=== PATIENT | female | born 1935 | race Caucasian/White ===

== ENCOUNTER → 2016-05-11 | Outpatient (CLI) | payer OTHER ==
[~2016-05-11] MED LIST: AMLO5CAP40; CYCL-181; LEVO150T68; PRED10PA7; PREMARIN; [UNRECOGNIZED DRUG - CODE]; [UNRECOGNIZED DRUG - CODE]
[2016-05-11 12:33] LABS: Basophils # (auto) 0 uL; Basophils % (auto) 0.5 % (0.0-2.0); Eosinophils # (auto) 0.3 uL; Eosinophils % (auto) 3.2 % (0.0-7.0); Hematocrit 46.6 % (36.0-46.0); Hemoglobin 14.9 g/dL (12.2-16.2); Lymphocytes # (auto) 2.8 uL; Lymphocytes % (auto) 34.3 % (10.0-50.0); Mean Corpuscular Hemoglobin 28.5 pg (28.0-32.0); Mean Corpuscular Hgb Conc. 31.9 g/dL (32.0-36.0); Mean Corpuscular Volume 89.3 fL (80.0-100.0); Mean Platelet Volume 8.9 fL (7.4-10.4); Monocytes # (auto) 0.4 uL; Monocytes % (auto) 5.1 % (0.0-12.0); Neutrophils # (auto) 4.7 uL; Neutrophils % (auto) 56.9 % (37.0-80.0); Platelet Count (auto) 316 10^3/uL (140-450); Red Cell Distribution Width 13.5 % (11.6-16.0); White Blood Cell 8.3 10^3/uL (4.4-10.8)
[2016-05-11 12:57] LABS: Albumin 3.6 g/dL (3.4-5.0); BUN/Creatinine Ratio 20.3; Bilirubin, Total 0.3 mg/dL (0.2-1.0); Potassium 4.4 mmol/L (3.5-5.1); Total Protein 7.3 g/dL (6.4-8.2)
[2016-05-11 13:09] LABS: Urine Bilirubin Negative (Negative); Urine Blood Negative /uL (Negative); Urine Color Yellow (Yellow); Urine Glucose Normal (Normal); Urine Ketone Negative (Negative); Urine Nitrite Negative (Negative); Urine Urobilinogen Normal (Negative)
== END | disposition home or self-care (01) ==
LOC: LAB 11:42
PROVIDERS: ATTEND Internal Medicine
DX: Z00.00 Encounter for general adult medical examination without abnormal findings (principal); I10 Essential (primary) hypertension; E55.9 Vitamin D deficiency, unspecified
CPT/HCPCS: 36415; 80053; 80061; 81003; 82306; 82550; 83036; 84443; 85025

== ENCOUNTER → 2016-08-18 | Outpatient (CLI) | payer OTHER | END | disposition home or self-care (01) | LOC: XY 10:09 | PROVIDERS: ATTEND Internal Medicine | DX: I73.9 Peripheral vascular disease, unspecified (principal) | CPT/HCPCS: 93926 ==

== ENCOUNTER 2017-01-02 09:50 | Emergency (ER) | payer OTHER ==
[~2017-01-02] VITALS: Ht 162.6 cm; Wt 81.6 kg
[2017-01-02 10:42] LABS: Urine Bilirubin Negative (Negative); Urine Blood Negative /uL (Negative); Urine Color Yellow (Yellow); Urine Glucose Normal (Normal); Urine Ketone Negative (Negative); Urine Mucus FEW (None Seen); Urine Nitrite Negative (Negative); Urine RBC 4 /hpf (0 - 4); Urine Squamous Epithelial Cell MOD /hpf (<5); Urine Urobilinogen Normal (Negative)
[2017-01-02 12:35] VITALS: BP 145/82
== END 2017-01-02 12:34 | disposition home or self-care (01) ==
LOC: ER 09:50
DX: N39.0 Urinary tract infection, site not specified (principal); I10 Essential (primary) hypertension; Z79.82 Long term (current) use of aspirin; Z90.49 Acquired absence of other specified parts of digestive tract; Z98.84 Bariatric surgery status
CPT/HCPCS: 74176; 81001; 93005

== ENCOUNTER → 2017-03-17 | Outpatient (CLI) | payer OTHER ==
[2017-03-17 11:53] LABS: Basophils # (auto) 0 uL; Basophils % (auto) 0.7 % (0.0-2.0); Eosinophils # (auto) 0.2 uL; Eosinophils % (auto) 2.9 % (0.0-7.0); Hematocrit 43.6 % (36.0-46.0); Hemoglobin 14.7 g/dL (12.2-16.2); Lymphocytes % (auto) 40.8 % (10.0-50.0); Mean Corpuscular Hemoglobin 30.6 pg (28.0-32.0); Mean Corpuscular Hgb Conc. 33.7 g/dL (32.0-36.0); Mean Corpuscular Volume 90.9 fL (80.0-100.0); Mean Platelet Volume 7.9 fL (6.9-10.8); Monocytes % (auto) 13.9 % (0.0-12.0); Neutrophils % (auto) 41.7 % (37.0-80.0); Nucleated Red Blood Cells % 0.1 %; Platelet Count (auto) 284 10^3/uL (140-450); Red Cell Distribution Width 14.2 % (11.8-14.3); White Blood Cell 7.3 10^3/uL (4.4-10.8)
[2017-03-17 12:24] LABS: Albumin 3.5 g/dL (3.4-5.0); BUN/Creatinine Ratio 20.7; Bilirubin, Total 0.4 mg/dL (0.2-1.0); Calcium 9.2 mg/dL (8.5-10.1); Potassium 4.2 mmol/L (3.5-5.1); Total Protein 7.5 g/dL (6.4-8.2); Uric Acid 6.2 mg/dL (2.6-6.0)
== END | disposition home or self-care (01) ==
LOC: LAB 11:27
PROVIDERS: ATTEND Physician Assistant
DX: I10 Essential (primary) hypertension (principal); E03.9 Hypothyroidism, unspecified; M10.9 Gout, unspecified
CPT/HCPCS: 36415; 80053; 80061; 84443; 84550; 85025

== ENCOUNTER 2017-08-30 20:45 | Emergency (ER) | payer OTHER ==
[~2017-08-30] VITALS: Ht 162.6 cm; Wt 81.6 kg
[2017-08-30 21:01] VITALS: BP 162/76
[2017-08-30 22:01] LABS: Albumin 3.6 g/dL (3.4-5.0); BUN/Creatinine Ratio 18.9; Bilirubin, Total 0.3 mg/dL (0.2-1.0); Calcium 9.4 mg/dL (8.5-10.1); Total Protein 7.7 g/dL (6.4-8.2)
[2017-08-30 22:04] LABS: INR 0.99 (0.9-1.15); Partial Thromboplastin Time 29.4 sec (23.78-33.04); Prothrombin Time 10.6 sec (9.27-12.13)
[2017-08-30 22:20] LABS: Basophils # (auto) 0.1 uL; Basophils % (auto) 0.6 % (0.0-2.0); Eosinophils # (auto) 0.3 uL; Eosinophils % (auto) 3.5 % (0.0-7.0); Hematocrit 41.9 % (36.0-46.0); Lymphocytes # (auto) 2.3 uL; Lymphocytes % (auto) 24.7 % (10.0-50.0); Mean Corpuscular Hemoglobin 30.3 pg (28.0-32.0); Mean Corpuscular Hgb Conc. 33.5 g/dL (32.0-36.0); Mean Corpuscular Volume 90.5 fL (80.0-100.0); Monocytes # (auto) 0.6 uL; Monocytes % (auto) 6.9 % (0.0-12.0); Neutrophils % (auto) 64.3 % (37.0-80.0); Nucleated Red Blood Cells % 0.1 %; Platelet Count (auto) 274 10^3/uL (140-450); Red Blood Cells 4.63 10^6/uL (4.0-5.20); Red Cell Distribution Width 13.9 % (11.8-14.3); White Blood Cell 9.4 10^3/uL (4.4-10.8)
== END 2017-08-30 22:49 | disposition left against medical advice (07) ==
LOC: ER 20:45
DX: T50.991A Poisoning by other drugs, medicaments and biological substances, accidental (unintentional), initial encounter (principal); Z53.21 Procedure and treatment not carried out due to patient leaving prior to being seen by health care provider; Y92.89 Other specified places as the place of occurrence of the external cause
CPT/HCPCS: 36415; 80053; 85025; 85610; 85730; 93005

== ENCOUNTER → 2017-08-30 | Outpatient (CLI) | payer OTHER ==
[2017-08-30 16:11] LABS: Basophils # (auto) 0.1 uL; Basophils % (auto) 1.2 % (0.0-2.0); Eosinophils # (auto) 0.3 uL; Hematocrit 43.1 % (36.0-46.0); Hemoglobin 14.4 g/dL (12.2-16.2); Lymphocytes # (auto) 2.5 uL; Lymphocytes % (auto) 28.3 % (10.0-50.0); Mean Corpuscular Hemoglobin 30.2 pg (28.0-32.0); Mean Corpuscular Hgb Conc. 33.4 g/dL (32.0-36.0); Mean Corpuscular Volume 90.4 fL (80.0-100.0); Monocytes # (auto) 0.6 uL; Monocytes % (auto) 7.2 % (0.0-12.0); Neutrophils # (auto) 5.1 uL; Neutrophils % (auto) 59.3 % (37.0-80.0); Platelet Count (auto) 272 10^3/uL (140-450); Red Blood Cells 4.77 10^6/uL (4.0-5.20); White Blood Cell 8.7 10^3/uL (4.4-10.8)
[2017-08-30 16:17] LABS: Urine Bacteria FEW /hpf (None Seen); Urine Blood Negative /uL (Negative); Urine Specific Gravity 1.016 (1.001-1.035); Urine WBC 3 /hpf (0 - 5)
[2017-08-30 17:16] LABS: BUN/Creatinine Ratio 21.4; Calcium 9.4 mg/dL (8.5-10.1); Phosphorus 3.2 mg/dL (2.5-4.90); Potassium 4.3 mmol/L (3.5-5.1)
[2017-08-30 17:18] LABS: Protein, Urine 10.7 mg/dL (0.0-11.9)
== END | disposition home or self-care (01) ==
LOC: LAB 15:31
PROVIDERS: ATTEND Student in an Organized Health Care Education/Training Program
DX: R80.9 Proteinuria, unspecified (principal); D84.1 Defects in the complement system; R76.8 Other specified abnormal immunological findings in serum; E03.9 Hypothyroidism, unspecified; I10 Essential (primary) hypertension
CPT/HCPCS: 36415; 80048; 81001; 82306; 82570; 83970; 84100; 84156; 85025; 86038; 86160; 86256

== ENCOUNTER → 2018-01-16 | Outpatient (CLI) | payer OTHER ==
[2018-01-16 10:55] LABS: Basophils # (auto) 0 uL; Basophils % (auto) 0.5 % (0.0-2.0); Eosinophils # (auto) 0.3 uL; Eosinophils % (auto) 3.5 % (0.0-7.0); Hematocrit 45.6 % (36.0-46.0); Hemoglobin 15.1 g/dL (12.2-16.2); Lymphocytes % (auto) 33.3 % (10.0-50.0); Mean Corpuscular Hemoglobin 30.4 pg (28.0-32.0); Mean Corpuscular Hgb Conc. 33.2 g/dL (32.0-36.0); Mean Corpuscular Volume 91.5 fL (80.0-100.0); Monocytes # (auto) 0.7 uL; Monocytes % (auto) 7.9 % (0.0-12.0); Neutrophils % (auto) 54.8 % (37.0-80.0); Platelet Count (auto) 304 10^3/uL (140-450); Red Blood Cells 4.98 10^6/uL (4.0-5.20); Red Cell Distribution Width 13.7 % (11.8-14.3); White Blood Cell 9.1 10^3/uL (4.4-10.8)
[2018-01-16 11:06] LABS: Urine Bacteria FEW /hpf (None Seen); Urine Blood Negative /uL (Negative); Urine Mucus FEW (None Seen); Urine Specific Gravity 1.017 (1.001-1.035); Urine WBC 9 /hpf (0 - 5)
[2018-01-16 11:12] LABS: Calcium 9.4 mg/dL (8.5-10.1); Potassium 4.2 mmol/L (3.5-5.1)
[2018-01-16 11:14] LABS: BUN/Creatinine Ratio 18.6
== END | disposition home or self-care (01) ==
LOC: LAB 10:02
PROVIDERS: ATTEND Student in an Organized Health Care Education/Training Program
DX: N18.3 Chronic kidney disease, stage 3 (moderate) (principal); D63.1 Anemia in chronic kidney disease; N39.0 Urinary tract infection, site not specified
CPT/HCPCS: 36415; 80048; 81001; 85025

== ENCOUNTER → 2018-02-05 | Outpatient (CLI) | payer OTHER ==
[2018-02-05 12:45] LABS: Basophils # (auto) 0.1 uL; Basophils % (auto) 0.9 % (0.0-2.0); Eosinophils # (auto) 0.3 uL; Eosinophils % (auto) 4.5 % (0.0-7.0); Hematocrit 44.3 % (36.0-46.0); Hemoglobin 14.9 g/dL (12.2-16.2); Lymphocytes # (auto) 2.3 uL; Lymphocytes % (auto) 31.2 % (10.0-50.0); Mean Corpuscular Hemoglobin 30.9 pg (28.0-32.0); Mean Corpuscular Hgb Conc. 33.5 g/dL (32.0-36.0); Mean Corpuscular Volume 92.2 fL (80.0-100.0); Monocytes # (auto) 0.5 uL; Neutrophils # (auto) 4.2 uL; Neutrophils % (auto) 56.4 % (37.0-80.0); Nucleated Red Blood Cells % 0.1 %; Platelet Count (auto) 244 10^3/uL (140-450); Red Cell Distribution Width 13.6 % (11.8-14.3); White Blood Cell 7.4 10^3/uL (4.4-10.8)
[2018-02-05 13:51] LABS: Albumin 3.4 g/dL (3.4-5.0); Potassium 4.4 mmol/L (3.5-5.1)
[2018-02-05 13:57] LABS: BUN/Creatinine Ratio 19.9; Bilirubin, Total 0.4 mg/dL (0.2-1.0); Total Protein 7.8 g/dL (6.4-8.2)
== END | disposition home or self-care (01) ==
LOC: LAB 10:16
PROVIDERS: ATTEND Physician Assistant
DX: Z00.01 Encounter for general adult medical examination with abnormal findings (principal); I12.9 Hypertensive chronic kidney disease with stage 1 through stage 4 chronic kidney disease, or unspecified chronic kidney disease; N18.3 Chronic kidney disease, stage 3 (moderate); E03.9 Hypothyroidism, unspecified
CPT/HCPCS: 36415; 80053; 80061; 84443; 85025

== ENCOUNTER 2018-03-15 11:20 | Emergency (ER) | payer OTHER ==
[~2018-03-15] VITALS: Ht 162.6 cm; Wt 79.4 kg
[2018-03-15 11:48] VITALS: BP 151/79
[2018-03-15] MEDS ORDERED: HYDROcodone-ACET 10/325MG TAB PO ONE (12:00)
== END 2018-03-15 15:32 | disposition home or self-care (01) ==
LOC: ER 11:20
DX: S20.211A Contusion of right front wall of thorax, initial encounter (principal); S90.31XA Contusion of right foot, initial encounter; S80.01XA Contusion of right knee, initial encounter; S50.01XA Contusion of right elbow, initial encounter; I12.9 Hypertensive chronic kidney disease with stage 1 through stage 4 chronic kidney disease, or unspecified chronic kidney disease; N18.9 Chronic kidney disease, unspecified; E07.89 Other specified disorders of thyroid; Z90.49 Acquired absence of other specified parts of digestive tract; Z90.710 Acquired absence of both cervix and uterus; Z88.2 Allergy status to sulfonamides; W19.XXXA Unspecified fall, initial encounter; Y93.89 Activity, other specified; Y99.8 Other external cause status; Y92.89 Other specified places as the place of occurrence of the external cause
CPT/HCPCS: 71101; 73070; 73560; 73620

== ENCOUNTER → 2018-04-16 | Outpatient (CLI) | payer OTHER ==
[2018-04-16 13:25] LABS: Basophils # (auto) 0 uL; Basophils % (auto) 0.5 % (0.0-2.0); Eosinophils # (auto) 0.3 uL; Eosinophils % (auto) 3.8 % (0.0-7.0); Hematocrit 45.7 % (36.0-46.0); Hemoglobin 15.3 g/dL (12.2-16.2); Lymphocytes % (auto) 35.3 % (10.0-50.0); Mean Corpuscular Hemoglobin 30.7 pg (28.0-32.0); Mean Corpuscular Hgb Conc. 33.5 g/dL (32.0-36.0); Mean Corpuscular Volume 91.5 fL (80.0-100.0); Monocytes # (auto) 0.6 uL; Monocytes % (auto) 6.9 % (0.0-12.0); Neutrophils # (auto) 4.5 uL; Neutrophils % (auto) 53.5 % (37.0-80.0); Nucleated Red Blood Cells % 0.1 %; Platelet Count (auto) 284 10^3/uL (140-450); Red Blood Cells 4.99 10^6/uL (4.0-5.20); Red Cell Distribution Width 13.3 % (11.8-14.3); White Blood Cell 8.4 10^3/uL (4.4-10.8)
[2018-04-16 13:27] LABS: Urine Blood Negative /uL (Negative); Urine Specific Gravity 1.018 (1.001-1.035)
[2018-04-16 13:46] LABS: BUN/Creatinine Ratio 14.7; Calcium 9.1 mg/dL (8.5-10.1); Potassium 4.5 mmol/L (3.5-5.1)
== END | disposition home or self-care (01) ==
LOC: LAB 12:00
PROVIDERS: ATTEND Student in an Organized Health Care Education/Training Program
DX: N18.3 Chronic kidney disease, stage 3 (moderate) (principal); D63.1 Anemia in chronic kidney disease; E55.9 Vitamin D deficiency, unspecified; R80.9 Proteinuria, unspecified
CPT/HCPCS: 36415; 80048; 81003; 82306; 85025

== ENCOUNTER 2018-06-20 19:27 | Emergency (ER) | payer OTHER ==
[~2018-06-20] VITALS: Ht 162.6 cm; Wt 77.1 kg
[2018-06-20 19:52] VITALS: BP 194/85
[2018-06-20 20:12] LABS: Basophils # (auto) 0.1 uL; Basophils % (auto) 0.8 % (0.0-2.0); Eosinophils # (auto) 0.2 uL; Eosinophils % (auto) 2.5 % (0.0-7.0); Hematocrit 43.6 % (36.0-46.0); Hemoglobin 14.7 g/dL (12.2-16.2); Lymphocytes # (auto) 2.4 uL; Lymphocytes % (auto) 25.4 % (10.0-50.0); Mean Corpuscular Hgb Conc. 33.8 g/dL (32.0-36.0); Mean Corpuscular Volume 91.6 fL (80.0-100.0); Monocytes # (auto) 0.6 uL; Monocytes % (auto) 6.4 % (0.0-12.0); Neutrophils # (auto) 6.1 uL; Neutrophils % (auto) 64.9 % (37.0-80.0); Platelet Count (auto) 293 10^3/uL (140-450); Red Blood Cells 4.76 10^6/uL (4.0-5.20); Red Cell Distribution Width 14.1 % (11.8-14.3); White Blood Cell 9.3 10^3/uL (4.4-10.8)
[2018-06-20 20:26] LABS: Partial Thromboplastin Time 29.9 sec (23.78-33.04); Prothrombin Time 10.7 sec (9.27-12.13)
[2018-06-20 20:30] LABS: Chloride 112 mmol/L (98-107); Potassium 3.8 mmol/L (3.5-5.1); Sodium 141 mmol/L (136-145)
[2018-06-20 20:32] LABS: Alanine Aminotransferase 24 U/L (13-56); Albumin 3.7 g/dL (3.4-5.0); Anion Gap 8 (5-15); Aspartate Aminotransferase 18 U/L (15-37); BUN/Creatinine Ratio 15.7; Blood Urea Nitrogen 19 mg/dL (7-18); Calcium 8.9 mg/dL (8.5-10.1); Carbon Dioxide 21 mmol/L (21-32); GFR African American 55 mL/min; GFR Non-African American 46 mL/min; Glucose 117 mg/dL (74-106); Magnesium 2.1 mg/dL (1.6-2.6)
[2018-06-20 20:36] LABS: Alkaline Phosphatase 108 U/L (45-117); Bilirubin, Total 0.4 mg/dL (0.2-1.0); Total Protein 7.7 g/dL (6.4-8.2)
== END 2018-06-20 23:58 | disposition left against medical advice (07) ==
LOC: ER 19:31
DX: R42 Dizziness and giddiness (principal); H92.01 Otalgia, right ear; Z53.21 Procedure and treatment not carried out due to patient leaving prior to being seen by health care provider
CPT/HCPCS: 36415; 70450; 80053; 83735; 83880; 84484; 85025; 85610; 85730

== ENCOUNTER → 2018-09-10 | Outpatient (CLI) | payer OTHER ==
[~2018-09-10] MED LIST changes: -AMLO5CAP40; +AMLO5TAB13 PO; +ASPI81TA27 PO; +ATEN50TA PO; -CYCL-181; +CYCL7.5T15 PO; +LEVO112T4 PO; -LEVO150T68; +LOSA-49 PO; -PRED10PA7; -PREMARIN; -[UNRECOGNIZED DRUG - CODE]; -[UNRECOGNIZED DRUG - CODE]
[2018-09-10 13:04] LABS: Basophils # (auto) 0.1 uL; Basophils % (auto) 0.9 % (0.0-2.0); Eosinophils # (auto) 0.3 uL; Eosinophils % (auto) 3.3 % (0.0-7.0); Hematocrit 44.5 % (36.0-46.0); Hemoglobin 14.8 g/dL (12.2-16.2); Lymphocytes # (auto) 2.7 uL; Lymphocytes % (auto) 32.1 % (10.0-50.0); Mean Corpuscular Hgb Conc. 33.2 g/dL (32.0-36.0); Mean Corpuscular Volume 90.4 fL (80.0-100.0); Monocytes # (auto) 0.5 uL; Monocytes % (auto) 6.5 % (0.0-12.0); Neutrophils # (auto) 4.8 uL; Neutrophils % (auto) 57.2 % (37.0-80.0); Nucleated Red Blood Cells % 0.1 %; Platelet Count (auto) 275 10^3/uL (140-450); Red Blood Cells 4.93 10^6/uL (4.0-5.20); Red Cell Distribution Width 13.3 % (11.8-14.3); White Blood Cell 8.4 10^3/uL (4.4-10.8)
[2018-09-10 13:21] LABS: Urine Blood Negative /uL (Negative); Urine Specific Gravity 1.015 (1.001-1.035)
[2018-09-10 13:42] LABS: BUN/Creatinine Ratio 16.5; Calcium 9.2 mg/dL (8.5-10.1); Creatinine, Urine 87 mg/dL (30.0-125.0); Potassium 4.2 mmol/L (3.5-5.1); Protein, Urine 13.7 mg/dL (0.0-11.9)
== END | disposition home or self-care (01) ==
LOC: LAB 12:39
PROVIDERS: ATTEND Student in an Organized Health Care Education/Training Program
DX: I12.9 Hypertensive chronic kidney disease with stage 1 through stage 4 chronic kidney disease, or unspecified chronic kidney disease (principal); N18.3 Chronic kidney disease, stage 3 (moderate); D63.1 Anemia in chronic kidney disease; R80.9 Proteinuria, unspecified; E78.5 Hyperlipidemia, unspecified
CPT/HCPCS: 36415; 80048; 80061; 81003; 82570; 84156; 85025

== ENCOUNTER → 2019-03-04 | Outpatient (CLI) | payer OTHER ==
[~2019-03-04] MED LIST changes: -AMLO5TAB13 PO; +AMLO5TAB15 PO; +ASPI-404 PO; -ASPI81TA27 PO; +LOSA-39 PO; -LOSA-49 PO
[2019-03-04 11:11] LABS: Basophils # (auto) 0.1 uL; Basophils % (auto) 0.8 % (0.0-2.0); Eosinophils # (auto) 0.3 uL; Eosinophils % (auto) 4.1 % (0.0-7.0); Hematocrit 45.7 % (36.0-46.0); Hemoglobin 15.3 g/dL (12.2-16.2); Lymphocytes # (auto) 2.5 uL; Lymphocytes % (auto) 30.3 % (10.0-50.0); Mean Corpuscular Hemoglobin 30.4 pg (28.0-32.0); Mean Corpuscular Hgb Conc. 33.4 g/dL (32.0-36.0); Mean Corpuscular Volume 90.9 fL (80.0-100.0); Monocytes # (auto) 0.5 uL; Monocytes % (auto) 6.7 % (0.0-12.0); Neutrophils # (auto) 4.8 uL; Neutrophils % (auto) 58.1 % (37.0-80.0); Nucleated Red Blood Cells % 0.1 %; Platelet Count (auto) 278 10^3/uL (140-450); Red Blood Cells 5.02 10^6/uL (4.0-5.20); Red Cell Distribution Width 13.6 % (11.8-14.3); White Blood Cell 8.2 10^3/uL (4.4-10.8)
[2019-03-04 11:37] LABS: Urine Blood Negative /uL (Negative); Urine Specific Gravity 1.011 (1.001-1.035)
[2019-03-04 12:28] LABS: Calcium 9.3 mg/dL (8.5-10.1); Potassium 4.5 mmol/L (3.5-5.1)
[2019-03-04 12:32] LABS: BUN/Creatinine Ratio 16.1
== END | disposition home or self-care (01) ==
LOC: LAB 10:50
PROVIDERS: ATTEND Student in an Organized Health Care Education/Training Program
DX: E55.9 Vitamin D deficiency, unspecified (principal); E03.9 Hypothyroidism, unspecified
CPT/HCPCS: 36415; 80048; 80061; 81003; 82306; 85025

== ENCOUNTER → 2019-05-14 | Outpatient (CLI) | payer OTHER | END | disposition home or self-care (01) | LOC: LAB 09:29 | PROVIDERS: ATTEND Physician Assistant | DX: R30.0 Dysuria (principal) | CPT/HCPCS: 87086; 87088; 87186 ==

== ENCOUNTER → 2019-09-02 | Outpatient (CLI) | payer OTHER ==
[2019-09-02 08:56] LABS: Basophils # (auto) 0.1 10 ^3/uL (0-0.2); Basophils % (auto) 1.2 % (0.0-2.0); Eosinophils # (auto) 0.5 10 ^3/uL (0-0.8); Eosinophils % (auto) 6.8 % (0.0-7.0); Hematocrit 48.7 % (36.0-46.0); Hemoglobin 15.9 g/dL (12.2-16.2); Lymphocytes # (auto) 2.2 10 ^3/uL (0.4-5.4); Lymphocytes % (auto) 31.8 % (10.0-50.0); Mean Corpuscular Hemoglobin 29.7 pg (28.0-32.0); Mean Corpuscular Hgb Conc. 32.6 g/dL (32.0-36.0); Mean Corpuscular Volume 91.1 fL (80.0-100.0); Monocytes # (auto) 0.5 10 ^3/uL (0-1.3); Monocytes % (auto) 6.8 % (0.0-12.0); Neutrophils # (auto) 3.7 10 ^3/uL (1.6-8.6); Neutrophils % (auto) 53.4 % (37.0-80.0); Nucleated Red Blood Cells % 0.1 %; Platelet Count (auto) 272 10^3/uL (140-450); Red Blood Cells 5.35 10^6/uL (4.0-5.20); Red Cell Distribution Width 13.2 % (11.8-14.3); White Blood Cell 6.9 10^3/uL (4.4-10.8)
[2019-09-02 09:27] LABS: BUN/Creatinine Ratio 13.6; Calcium 9.6 mg/dL (8.5-10.1)
[2019-09-02 09:49] LABS: Urine Bacteria MANY /hpf (None Seen); Urine Blood Negative /uL (Negative); Urine Specific Gravity 1.016 (1.001-1.035); Urine WBC 39 /hpf (0 - 5)
== END | disposition home or self-care (01) ==
LOC: LAB 08:36
PROVIDERS: ATTEND Student in an Organized Health Care Education/Training Program
DX: E56.9 Vitamin deficiency, unspecified (principal); N18.3 Chronic kidney disease, stage 3 (moderate); N39.0 Urinary tract infection, site not specified; E21.3 Hyperparathyroidism, unspecified; E55.9 Vitamin D deficiency, unspecified
CPT/HCPCS: 36415; 80048; 81001; 82306; 83970; 85025

== ENCOUNTER → 2019-12-03 | Outpatient (CLI) | payer OTHER ==
[~2019-12-03] MED LIST changes: -ASPI-404 PO; +ASPI-543 PO; -CYCL7.5T15 PO; +CYCL7.5T45 PO
[2019-12-03 14:49] LABS: Basophils # (auto) 0.1 10 ^3/uL (0-0.2); Basophils % (auto) 0.8 % (0.0-2.0); Eosinophils # (auto) 0.3 10 ^3/uL (0-0.8); Eosinophils % (auto) 3.9 % (0.0-7.0); Hemoglobin 14.2 g/dL (12.2-16.2); Lymphocytes # (auto) 3.4 10 ^3/uL (0.4-5.4); Lymphocytes % (auto) 40.3 % (10.0-50.0); Mean Corpuscular Hemoglobin 30.2 pg (28.0-32.0); Mean Corpuscular Hgb Conc. 33.1 g/dL (32.0-36.0); Mean Corpuscular Volume 91.3 fL (80.0-100.0); Monocytes # (auto) 0.6 10 ^3/uL (0-1.3); Neutrophils # (auto) 4.1 10 ^3/uL (1.6-8.6); Platelet Count (auto) 252 10^3/uL (140-450); Red Cell Distribution Width 13.7 % (11.8-14.3); White Blood Cell 8.5 10^3/uL (4.4-10.8)
[2019-12-03 15:06] LABS: Calcium 9.1 mg/dL (8.5-10.1)
[2019-12-03 15:08] LABS: BUN/Creatinine Ratio 15.6; Phosphorus 3.8 mg/dL (2.5-4.90)
[2019-12-03 15:16] LABS: Protein, Urine 19.5 mg/dL (0.0-11.9)
[2019-12-03 15:32] LABS: Urine Bacteria NONE SEEN /hpf (None Seen); Urine Blood Negative /uL (Negative); Urine Mucus FEW (None Seen); Urine Specific Gravity 1.022 (1.001-1.035); Urine WBC 3 /hpf (0 - 5)
== END | disposition home or self-care (01) ==
LOC: LAB 14:36
PROVIDERS: ATTEND Student in an Organized Health Care Education/Training Program
DX: N18.3 Chronic kidney disease, stage 3 (moderate) (principal); E21.3 Hyperparathyroidism, unspecified; D63.1 Anemia in chronic kidney disease; R80.9 Proteinuria, unspecified; R82.90 Unspecified abnormal findings in urine
CPT/HCPCS: 36415; 80048; 81001; 82570; 83970; 84100; 84156; 85025

== ENCOUNTER → 2020-03-03 | Outpatient (CLI) | payer OTHER ==
[2020-03-03 11:14] LABS: Basophils # (auto) 0.1 10 ^3/uL (0-0.2); Basophils % (auto) 0.7 % (0.0-2.0); Eosinophils # (auto) 0.3 10 ^3/uL (0-0.8); Eosinophils % (auto) 3.4 % (0.0-7.0); Hematocrit 42.9 % (36.0-46.0); Hemoglobin 14.4 g/dL (12.2-16.2); Lymphocytes # (auto) 2.9 10 ^3/uL (0.4-5.4); Lymphocytes % (auto) 35.5 % (10.0-50.0); Mean Corpuscular Hemoglobin 30.1 pg (28.0-32.0); Mean Corpuscular Hgb Conc. 33.6 g/dL (32.0-36.0); Mean Corpuscular Volume 89.7 fL (80.0-100.0); Monocytes # (auto) 0.7 10 ^3/uL (0-1.3); Monocytes % (auto) 8.1 % (0.0-12.0); Neutrophils # (auto) 4.3 10 ^3/uL (1.6-8.6); Neutrophils % (auto) 52.3 % (37.0-80.0); Platelet Count (auto) 312 10^3/uL (140-450); Red Blood Cells 4.78 10^6/uL (4.0-5.20); Red Cell Distribution Width 13.7 % (11.8-14.3); White Blood Cell 8.3 10^3/uL (4.4-10.8)
[2020-03-03 11:18] LABS: Urine Bacteria MANY /hpf (None Seen); Urine Blood Negative /uL (Negative); Urine Specific Gravity 1.014 (1.001-1.035); Urine WBC 18 /hpf (0 - 5)
[2020-03-03 11:32] LABS: Albumin 3.6 g/dL (3.4-5.0); Calcium 9.5 mg/dL (8.5-10.1); Potassium 4.1 mmol/L (3.5-5.1); Uric Acid 5.4 mg/dL (2.6-6.0)
[2020-03-03 11:35] LABS: BUN/Creatinine Ratio 16.4; Bilirubin, Total 0.4 mg/dL (0.2-1.0); Phosphorus 2.8 mg/dL (2.5-4.90); Total Protein 7.7 g/dL (6.4-8.2)
[2020-03-03 11:37] LABS: Protein, Urine 12.1 mg/dL (0.0-11.9)
== END | disposition home or self-care (01) ==
LOC: LAB 10:54
PROVIDERS: ATTEND Student in an Organized Health Care Education/Training Program
DX: N18.30 Chronic kidney disease, stage 3 unspecified (principal); D63.1 Anemia in chronic kidney disease; N39.0 Urinary tract infection, site not specified; E21.3 Hyperparathyroidism, unspecified; R80.9 Proteinuria, unspecified; M10.9 Gout, unspecified
CPT/HCPCS: 36415; 80053; 80069; 81001; 82570; 83970; 84156; 84550; 85025

== ENCOUNTER → 2020-04-14 | Outpatient (CLI) | payer OTHER ==
[2020-04-14 11:07] LABS: Basophils # (auto) 0 10 ^3/uL (0-0.2); Basophils % (auto) 0.6 % (0.0-2.0); Eosinophils # (auto) 0.3 10 ^3/uL (0-0.8); Eosinophils % (auto) 3.9 % (0.0-7.0); Hematocrit 41.6 % (36.0-46.0); Hemoglobin 14.2 g/dL (12.2-16.2); Lymphocytes # (auto) 3.1 10 ^3/uL (0.4-5.4); Lymphocytes % (auto) 40.2 % (10.0-50.0); Mean Corpuscular Hemoglobin 30.8 pg (28.0-32.0); Mean Corpuscular Hgb Conc. 34.1 g/dL (32.0-36.0); Mean Corpuscular Volume 90.3 fL (80.0-100.0); Monocytes # (auto) 0.6 10 ^3/uL (0-1.3); Monocytes % (auto) 8.5 % (0.0-12.0); Neutrophils # (auto) 3.6 10 ^3/uL (1.6-8.6); Neutrophils % (auto) 46.8 % (37.0-80.0); Nucleated Red Blood Cells % 0.1 %; Platelet Count (auto) 289 10^3/uL (140-450); Red Cell Distribution Width 13.5 % (11.8-14.3); White Blood Cell 7.6 10^3/uL (4.4-10.8)
[2020-04-14 11:19] LABS: Urine Blood Negative /uL (Negative)
[2020-04-14 12:07] LABS: Potassium 4.1 mmol/L (3.5-5.1)
[2020-04-14 12:11] LABS: Creatinine, Urine 162 mg/dL (30.0-125.0); Protein, Urine 23.7 mg/dL (0.0-11.9)
[2020-04-14 12:28] LABS: Albumin 3.5 g/dL (3.4-5.0); Phosphorus 2.6 mg/dL (2.5-4.90); Uric Acid 5.3 mg/dL (2.6-6.0)
== END | disposition home or self-care (01) ==
LOC: LAB 10:44
PROVIDERS: ATTEND Student in an Organized Health Care Education/Training Program
DX: N18.30 Chronic kidney disease, stage 3 unspecified (principal); D63.1 Anemia in chronic kidney disease; E21.3 Hyperparathyroidism, unspecified; M10.9 Gout, unspecified; R80.9 Proteinuria, unspecified; N39.0 Urinary tract infection, site not specified; E56.9 Vitamin deficiency, unspecified
CPT/HCPCS: 36415; 80069; 81003; 82306; 82570; 83970; 84156; 84550; 85025

== ENCOUNTER → 2020-06-15 | Outpatient (CLI) | payer OTHER ==
[~2020-06-15] MED LIST changes: +AMLO-489 PO; -AMLO5TAB15 PO
[2020-06-15 13:16] LABS: Basophils # (auto) 0 10 ^3/uL (0-0.2); Basophils % (auto) 0.5 % (0.0-2.0); Eosinophils # (auto) 0.2 10 ^3/uL (0-0.8); Eosinophils % (auto) 3.1 % (0.0-7.0); Hematocrit 42.2 % (36.0-46.0); Hemoglobin 14.4 g/dL (12.2-16.2); Lymphocytes # (auto) 2.4 10 ^3/uL (0.4-5.4); Lymphocytes % (auto) 32.2 % (10.0-50.0); Mean Corpuscular Hemoglobin 31.1 pg (28.0-32.0); Mean Corpuscular Hgb Conc. 34.1 g/dL (32.0-36.0); Mean Corpuscular Volume 91.3 fL (80.0-100.0); Monocytes # (auto) 0.5 10 ^3/uL (0-1.3); Monocytes % (auto) 7.1 % (0.0-12.0); Neutrophils # (auto) 4.2 10 ^3/uL (1.6-8.6); Neutrophils % (auto) 57.1 % (37.0-80.0); Nucleated Red Blood Cells % 0.1 %; Platelet Count (auto) 301 10^3/uL (140-450); Red Blood Cells 4.62 10^6/uL (4.0-5.20); Red Cell Distribution Width 13.8 % (11.8-14.3); White Blood Cell 7.4 10^3/uL (4.4-10.8)
[2020-06-15 13:19] LABS: Urine Bacteria MANY /hpf (None Seen); Urine Blood Negative /uL (Negative); Urine Specific Gravity 1.016 (1.001-1.035); Urine WBC 14 /hpf (0 - 5)
[2020-06-15 13:42] LABS: Protein, Urine 15.1 mg/dL (0.0-11.9)
[2020-06-15 13:43] LABS: BUN/Creatinine Ratio 18.3; Calcium 9.4 mg/dL (8.5-10.1); Potassium 4.8 mmol/L (3.5-5.1)
== END | disposition home or self-care (01) ==
LOC: LAB 11:50
PROVIDERS: ATTEND Student in an Organized Health Care Education/Training Program
DX: N18.31 Chronic kidney disease, stage 3a (principal); D63.1 Anemia in chronic kidney disease; R82.90 Unspecified abnormal findings in urine; R80.9 Proteinuria, unspecified
CPT/HCPCS: 36415; 80048; 81001; 82570; 83036; 84156; 85025

== ENCOUNTER 2020-08-24 18:17 | Emergency (ER) | payer OTHER ==
[~2020-08-24] VITALS: Ht 162.6 cm; Wt 81.2 kg
[2020-08-24 19:17] LABS: Basophils # (auto) 0.1 10 ^3/uL (0-0.2); Basophils % (auto) 0.9 % (0.0-2.0); Eosinophils # (auto) 0.3 10 ^3/uL (0-0.8); Eosinophils % (auto) 2.8 % (0.0-7.0); Hematocrit 43.7 % (36.0-46.0); Hemoglobin 14.9 g/dL (12.2-16.2); Lymphocytes # (auto) 2.8 10 ^3/uL (0.4-5.4); Mean Corpuscular Hemoglobin 30.9 pg (28.0-32.0); Mean Corpuscular Volume 90.7 fL (80.0-100.0); Monocytes # (auto) 0.6 10 ^3/uL (0-1.3); Monocytes % (auto) 6.3 % (0.0-12.0); Nucleated Red Blood Cells % 0.1 %; Platelet Count (auto) 329 10^3/uL (140-450); Red Blood Cells 4.82 10^6/uL (4.0-5.20); Red Cell Distribution Width 13.5 % (11.8-14.3); White Blood Cell 9.8 10^3/uL (4.4-10.8)
[2020-08-24 19:37] LABS: Calcium 9.3 mg/dL (8.5-10.1); Potassium 4.3 mmol/L (3.5-5.1)
[2020-08-24 19:40] LABS: Bilirubin, Total 0.3 mg/dL (0.2-1.0); Total Protein 8.2 g/dL (6.4-8.2)
[2020-08-24] MEDS ORDERED: FUROSEMIDE 40 MG/4 ML VIAL IV ONE (20:00)
[2020-08-24 21:00] VITALS: BP 154/64
== END 2020-08-24 22:51 | disposition home or self-care (01) ==
LOC: ER 18:17
DX: M79.89 Other specified soft tissue disorders (principal); R07.89 Other chest pain; I12.9 Hypertensive chronic kidney disease with stage 1 through stage 4 chronic kidney disease, or unspecified chronic kidney disease; E11.22 Type 2 diabetes mellitus with diabetic chronic kidney disease; N18.9 Chronic kidney disease, unspecified; Z20.822 Contact with and (suspected) exposure to COVID-19; Z88.2 Allergy status to sulfonamides; Z90.49 Acquired absence of other specified parts of digestive tract; Z90.710 Acquired absence of both cervix and uterus; Z90.89 Acquired absence of other organs
CPT/HCPCS: 36415; 71046; 80053; 83880; 84484; 85025; 87426; 93005; 93970; 96374; 99285; J1940

== ENCOUNTER → 2020-11-10 | Outpatient (CLI) | payer OTHER ==
[2020-11-10 09:38] LABS: Urine Bacteria MOD /hpf (None Seen); Urine Blood Negative /uL (Negative); Urine Specific Gravity 1.013 (1.001-1.035); Urine WBC 2 /hpf (0 - 5)
[2020-11-10 09:49] LABS: BUN/Creatinine Ratio 19.1; Calcium 9.3 mg/dL (8.5-10.1); Potassium 4.3 mmol/L (3.5-5.1)
== END | disposition home or self-care (01) ==
LOC: LAB 09:04
PROVIDERS: ATTEND Student in an Organized Health Care Education/Training Program
DX: N18.31 Chronic kidney disease, stage 3a (principal); R82.90 Unspecified abnormal findings in urine
CPT/HCPCS: 36415; 80048; 81001

== ENCOUNTER 2021-02-04 07:02 | Inpatient (IN) | payer OTHER ==
[~2021-02-04] VITALS: Ht 162.6 cm; Wt 82.4 kg
[~2021-02-04 07:02] MED LIST changes: -ASPI-543 PO; +ASPI1TAB20 PO; +CYCL-839 PO; -CYCL7.5T45 PO; +ESTR1TAB6 PO; +FURO40TA4 PO; +HYDR-4072 PO
[2021-02-04] MEDS ORDERED: fentaNYL CITRATE 100 MCG/2 ML VL ONE (09:23)
[2021-02-04] MEDS ORDERED: ANGIOMAX 250 MG VIAL IV ONE (09:23)
[2021-02-04] MEDS ORDERED: LIDOCAINE 2%HCL (LOCAL ANESTH.) INJ 20ML MDV ONE (09:24)
[2021-02-04] MEDS ORDERED: IOHEXOL 350 MG/ML 100ML IJ ONE ×3 (09:24→10:19)
[2021-02-04] MEDS ORDERED: SODIUM CHL 0.9% 50 ML ONE (09:24)
[2021-02-04] MEDS ORDERED: MIDAZOLAM HCL 2MG/2ML 2ml VIAL (1mg/ml) ONE (09:24)
[2021-02-04] MEDS ORDERED: ASPirin 81 mg TAB ONE (10:25)
[2021-02-04] MEDS ORDERED: TICAGRELOR 90 MG TAB ONE (10:25)
[2021-02-04] MEDS ORDERED: ONDANSETRON HCL 4 MG/2 ML VIAL IV PRN (11:15)
[2021-02-04] MEDS ORDERED: HYDROcodone-ACET 5/325MG TAB PO PRN (11:15)
[2021-02-04] MEDS ORDERED: ACETAMINOPHEN 500 MG TAB PO PRN (11:15)
[2021-02-04] MEDS ORDERED: MORPHINE SULFATE INJECTION 2 MG/ML SYRG IV PRN (13:15)
[2021-02-04] MEDS ORDERED: NITROGLYCERIN 0.4 MG SL TAB SL PRN (13:15)
[2021-02-04] MEDS ORDERED: methylPREDNISolone SOD SUCC 125 MG/2 ML VL IV ONE (13:15)
[2021-02-04] MEDS ORDERED: CYCLOBENZAPRINE HCL 10 MG TAB PO PRN (13:15)
[2021-02-04 17:44] VITALS: BP 158/81
[2021-02-04] MEDS ORDERED: LOSARTAN POTASSIUM 50 MG TAB PO ONE (17:45)
[2021-02-04 23:22] VITALS: BP 149/76
[2021-02-05 08:50] VITALS: BP 138/57
[2021-02-05] MEDS ORDERED: ATENOLOL 50 MG TAB PO SCH (10:00)
[2021-02-05] MEDS ORDERED: LOSARTAN POTASSIUM 50 MG TAB PO SCH (10:00)
[2021-02-05] MEDS ORDERED: LEVOTHYROXINE SODIUM 112 MCG TAB PO SCH (10:00)
[2021-02-05] MEDS ORDERED: FUROSEMIDE 40 MG TAB PO SCH (10:00)
[2021-02-05] MEDS ORDERED: amLODIPine BESYLATE 5 MG TAB PO SCH (10:00)
[2021-02-05] MEDS ORDERED: ESTRADIOL 1 MG TAB PO SCH (10:00)
[2021-02-05] MEDS ORDERED: ASPirin-EC 81 mg tab PO SCH (10:00)
[2021-02-05] MEDS ORDERED: CLOPIDOGREL BISULFATE 75 MG TAB PO SCH (10:00)
[2021-02-05 12:21] VITALS: BP 139/65
[2021-02-05 14:00] VITALS: BP 124/63
[2021-02-05 14:01] VITALS: BP 139/65
== END 2021-02-05 17:26 | disposition home or self-care (01) | DRG 247 ==
LOC: CATH 07:02 → TELE 13:07 → TELE-CENTR 15:38
PROVIDERS: ADMIT Internal Medicine Cardiovascular Disease; ATTEND Internal Medicine Cardiovascular Disease
PROC: 027135Z Dilation of Coronary Artery, Two Arteries with Two Drug-eluting Intraluminal Devices, Percutaneous Approach (ICD-10-PCS; principal; 2021-02-04)
PROC: 4A023N7 Measurement of Cardiac Sampling and Pressure, Left Heart, Percutaneous Approach (ICD-10-PCS; 2021-02-04)
PROC: B211YZZ Fluoroscopy of Multiple Coronary Arteries using Other Contrast (ICD-10-PCS; 2021-02-04)
PROC: B215YZZ Fluoroscopy of Left Heart using Other Contrast (ICD-10-PCS; 2021-02-04)
PROC: 4A033BC Measurement of Arterial Pressure, Coronary, Percutaneous Approach (ICD-10-PCS; 2021-02-04)
DX: I25.10 Atherosclerotic heart disease of native coronary artery without angina pectoris (principal); F32.A Depression, unspecified; I10 Essential (primary) hypertension; G43.909 Migraine, unspecified, not intractable, without status migrainosus; J44.9 Chronic obstructive pulmonary disease, unspecified; Z86.73 Personal history of transient ischemic attack (TIA), and cerebral infarction without residual deficits; Z20.822 Contact with and (suspected) exposure to COVID-19; Z88.2 Allergy status to sulfonamides
CPT/HCPCS: 92928; 93458; 93571; 99152; 99153; C1874; G0378; J2250

== ENCOUNTER → 2021-04-20 | Outpatient (CLI) | payer OTHER ==
[2021-04-20 08:03] LABS: Basophils # (auto) 0.1 10 ^3/uL (0-0.2); Basophils % (auto) 1.1 % (0.0-2.0); Eosinophils # (auto) 0.4 10 ^3/uL (0-0.8); Eosinophils % (auto) 5.4 % (0.0-7.0); Hematocrit 42.4 % (36.0-46.0); Lymphocytes # (auto) 1.8 10 ^3/uL (0.4-5.4); Lymphocytes % (auto) 27.7 % (10.0-50.0); Mean Corpuscular Hemoglobin 29.7 pg (28.0-32.0); Mean Corpuscular Hgb Conc. 33.1 g/dL (32.0-36.0); Mean Corpuscular Volume 89.6 fL (80.0-100.0); Monocytes # (auto) 0.5 10 ^3/uL (0-1.3); Monocytes % (auto) 7.4 % (0.0-12.0); Neutrophils # (auto) 3.9 10 ^3/uL (1.6-8.6); Neutrophils % (auto) 58.4 % (37.0-80.0); Nucleated Red Blood Cells % 0.1 %; Red Blood Cells 4.73 10^6/uL (4.0-5.20); Red Cell Distribution Width 13.5 % (11.8-14.3); White Blood Cell 6.6 10^3/uL (4.4-10.8)
[2021-04-20 08:18] LABS: Albumin 3.6 g/dL (3.4-5.0); BUN/Creatinine Ratio 17.4; Bilirubin, Total 0.2 mg/dL (0.2-1.0); Calcium 9.2 mg/dL (8.5-10.1); Total Protein 7.4 g/dL (6.4-8.2)
[2021-04-21 10:52] LABS: Protein, Urine 10.3 mg/dL (0.0-11.9)
[2021-04-21 10:58] LABS: Urine Bacteria MOD /hpf (None Seen); Urine Blood Negative /uL (Negative); Urine Specific Gravity 1.012 (1.001-1.035); Urine WBC 13 /hpf (0 - 5)
== END | disposition home or self-care (01) ==
LOC: LAB 07:04
PROVIDERS: ATTEND Student in an Organized Health Care Education/Training Program
DX: D63.1 Anemia in chronic kidney disease (principal); N18.31 Chronic kidney disease, stage 3a; R82.90 Unspecified abnormal findings in urine; R80.9 Proteinuria, unspecified
CPT/HCPCS: 36415; 80053; 81001; 82570; 84156; 85025

== ENCOUNTER 2021-06-29 12:08 | Day surgery (SDC) | payer OTHER ==
[~2021-06-29] VITALS: Ht 162.6 cm; Wt 79.4 kg
[~2021-06-29 12:08] MED LIST changes: +CLOP75TA70 PO; -ESTR1TAB6 PO
[2021-06-29] MEDS ORDERED: LIDOCAINE 2%HCL (LOCAL ANESTH.) INJ 10ml MDV ONE (12:46)
[2021-06-29] MEDS ORDERED: IOHEXOL 350 MG/ML 100ML IJ ONE (12:46)
[2021-06-29] MEDS ORDERED: HEPARIN IN NS 1000Units/500mL 1,500 ML ONE (12:46)
[2021-06-29] MEDS ORDERED: fentaNYL CITRATE 100 MCG/2 ML VL ONE (12:54)
[2021-06-29] MEDS ORDERED: MIDAZOLAM HCL 2MG/2ML 2ml VIAL (1mg/ml) ONE (12:54)
[2021-06-29] MEDS ORDERED: ANGIOMAX 250 MG VIAL IV ONE (12:58)
[2021-06-29] MEDS ORDERED: SODIUM CHL 0.9% 50 ML ONE (12:58)
[2021-06-29] MEDS ORDERED: CLOPIDOGREL BISULFATE 75 MG TAB ONE (13:47)
== END 2021-06-29 15:55 | disposition home or self-care (01) ==
LOC: CATH 12:08
PROVIDERS: ATTEND Internal Medicine Cardiovascular Disease
DX: I25.10 Atherosclerotic heart disease of native coronary artery without angina pectoris (principal); I11.9 Hypertensive heart disease without heart failure; E78.5 Hyperlipidemia, unspecified; I25.2 Old myocardial infarction; M19.90 Unspecified osteoarthritis, unspecified site; J44.9 Chronic obstructive pulmonary disease, unspecified; Z95.5 Presence of coronary angioplasty implant and graft; Z88.2 Allergy status to sulfonamides; Z79.899 Other long term (current) drug therapy; Z86.73 Personal history of transient ischemic attack (TIA), and cerebral infarction without residual deficits; Z82.49 Family history of ischemic heart disease and other diseases of the circulatory system; Z83.3 Family history of diabetes mellitus; Z80.7 Family history of other malignant neoplasms of lymphoid, hematopoietic and related tissues; Z80.0 Family history of malignant neoplasm of digestive organs; Z79.02 Long term (current) use of antithrombotics/antiplatelets; Z90.710 Acquired absence of both cervix and uterus; Z80.1 Family history of malignant neoplasm of trachea, bronchus and lung; Z82.61 Family history of arthritis; Z84.1 Family history of disorders of kidney and ureter; Z20.822 Contact with and (suspected) exposure to COVID-19
CPT/HCPCS: 93454; 93571; C1726; C1760; C1769; C1874; C1887; C1894; C9600; J0583; J1644; J2001; J2250; J3010; J7030; Q9967; U0003; 93458; 99152; 99153

== ENCOUNTER → 2021-09-28 | Outpatient (CLI) | payer OTHER | END | disposition home or self-care (01) | LOC: Rad HDHVI 13:57 | PROVIDERS: ATTEND Internal Medicine Cardiovascular Disease | DX: I08.2 Rheumatic disorders of both aortic and tricuspid valves (principal); R07.89 Other chest pain; R06.02 Shortness of breath | CPT/HCPCS: 93306 ==

== ENCOUNTER → 2021-10-04 | Outpatient (CLI) | payer OTHER ==
[2021-10-04 10:32] LABS: Basophils # (auto) 0.1 10 ^3/uL (0-0.2); Basophils % (auto) 0.7 % (0.0-2.0); Eosinophils # (auto) 0.5 10 ^3/uL (0-0.8); Eosinophils % (auto) 5.8 % (0.0-7.0); Hematocrit 43.1 % (36.0-46.0); Lymphocytes # (auto) 2.6 10 ^3/uL (0.4-5.4); Lymphocytes % (auto) 30.5 % (10.0-50.0); Mean Corpuscular Hgb Conc. 32.5 g/dL (32.0-36.0); Mean Corpuscular Volume 89.2 fL (80.0-100.0); Monocytes # (auto) 0.7 10 ^3/uL (0-1.3); Monocytes % (auto) 8.1 % (0.0-12.0); Neutrophils # (auto) 4.6 10 ^3/uL (1.6-8.6); Neutrophils % (auto) 54.9 % (37.0-80.0); Nucleated Red Blood Cells % 0.1 %; Red Blood Cells 4.82 10^6/uL (4.0-5.20); Red Cell Distribution Width 14.5 % (11.8-14.3); White Blood Cell 8.4 10^3/uL (4.4-10.8)
[2021-10-04 10:35] LABS: Urine Bacteria FEW /hpf (None Seen); Urine Blood Negative /uL (Negative); Urine Hyaline Cast FEW /lpf (0 - 2); Urine Specific Gravity 1.017 (1.001-1.035); Urine WBC 12 /hpf (0 - 5)
[2021-10-04 10:55] LABS: Potassium 4.7 mmol/L (3.5-5.1)
[2021-10-04 11:02] LABS: BUN/Creatinine Ratio 22.1; Calcium 9.6 mg/dL (8.5-10.1)
[2021-10-04 11:05] LABS: Protein, Urine 14.2 mg/dL (0.0-11.9)
== END | disposition home or self-care (01) ==
LOC: LAB 09:48
PROVIDERS: ATTEND Student in an Organized Health Care Education/Training Program
DX: R80.9 Proteinuria, unspecified (principal); M16.32 Unilateral osteoarthritis resulting from hip dysplasia, left hip; D63.1 Anemia in chronic kidney disease
CPT/HCPCS: 36415; 80048; 81001; 82570; 84156; 85025

== ENCOUNTER → 2021-10-18 | Outpatient (CLI) | payer OTHER ==
[2021-10-18 16:24] LABS: Urine Blood Negative /uL (Negative); Urine Specific Gravity 1.024 (1.001-1.035)
== END | disposition home or self-care (01) ==
LOC: Rad HDHVI 15:06
PROVIDERS: ATTEND Internal Medicine Cardiovascular Disease
DX: N39.0 Urinary tract infection, site not specified (principal); R07.9 Chest pain, unspecified; R06.02 Shortness of breath; R42 Dizziness and giddiness
CPT/HCPCS: 71046; 81003; 87086

== ENCOUNTER → 2021-11-10 | Outpatient (CLI) | payer OTHER | END | disposition home or self-care (01) | LOC: Rad HDHVI 15:53 | PROVIDERS: ATTEND Internal Medicine Cardiovascular Disease | DX: I73.9 Peripheral vascular disease, unspecified (principal); R60.9 Edema, unspecified | CPT/HCPCS: 93925 ==

== ENCOUNTER → 2022-02-24 | Outpatient (CLI) | payer OTHER ==
[2022-02-24 12:37] LABS: Basophils # (auto) 0 10 ^3/uL (0-0.2); Basophils % (auto) 0.5 % (0.0-2.0); Eosinophils # (auto) 0.3 10 ^3/uL (0-0.8); Eosinophils % (auto) 3.6 % (0.0-7.0); Hematocrit 42.5 % (36.0-46.0); Hemoglobin 13.7 g/dL (12.2-16.2); Lymphocytes # (auto) 2.4 10 ^3/uL (0.4-5.4); Lymphocytes % (auto) 29.7 % (10.0-50.0); Mean Corpuscular Hemoglobin 28.8 pg (28.0-32.0); Mean Corpuscular Hgb Conc. 32.2 g/dL (32.0-36.0); Mean Corpuscular Volume 89.5 fL (80.0-100.0); Monocytes # (auto) 0.7 10 ^3/uL (0-1.3); Neutrophils # (auto) 4.7 10 ^3/uL (1.6-8.6); Neutrophils % (auto) 58.2 % (37.0-80.0); Nucleated Red Blood Cells % 0.1 %; Red Blood Cells 4.75 10^6/uL (4.0-5.20); Red Cell Distribution Width 14.8 % (11.8-14.3); White Blood Cell 8.1 10^3/uL (4.4-10.8)
[2022-02-24 12:59] LABS: Albumin 3.5 g/dL (3.4-5.0); Calcium 9.6 mg/dL (8.5-10.1); Potassium 4.3 mmol/L (3.5-5.1)
[2022-02-24 13:03] LABS: Bilirubin, Total 0.4 mg/dL (0.2-1.0); Total Protein 7.2 g/dL (6.4-8.2)
[2022-02-24 13:09] LABS: Protein, Urine 20.1 mg/dL (0.0-11.9)
== END | disposition home or self-care (01) ==
LOC: LAB 12:24
PROVIDERS: ATTEND Student in an Organized Health Care Education/Training Program
DX: N18.31 Chronic kidney disease, stage 3a (principal); D63.1 Anemia in chronic kidney disease; E83.39 Other disorders of phosphorus metabolism; R80.9 Proteinuria, unspecified; R82.90 Unspecified abnormal findings in urine; N39.0 Urinary tract infection, site not specified
CPT/HCPCS: 36415; 80053; 82570; 84100; 84156; 84550; 85025; 87086

== ENCOUNTER → 2022-03-07 | Outpatient (CLI) | payer OTHER | END | disposition home or self-care (01) | LOC: LAB 13:20 | PROVIDERS: ATTEND Nurse Practitioner | DX: N39.0 Urinary tract infection, site not specified (principal) | CPT/HCPCS: 87086 ==

== ENCOUNTER → 2022-03-30 | Outpatient (CLI) | payer OTHER | END | disposition home or self-care (01) | LOC: Rad HDHVI 15:00 | PROVIDERS: ATTEND Internal Medicine Cardiovascular Disease | DX: I08.8 Other rheumatic multiple valve diseases (principal); R00.2 Palpitations; R06.02 Shortness of breath | CPT/HCPCS: 93306 ==

== ENCOUNTER → 2022-04-05 | Outpatient (CLI) | payer OTHER ==
[~2022-04-05] VITALS: Ht 162.6 cm; Wt 79.4 kg
[~2022-04-05] MED LIST changes: +ADENOSINE 67 MG in GIVE UN-DILUTED 0 ML IV ONE; +ADENOSINE 90 MG/30 ML INJ IV ONE
== END | disposition home or self-care (01) ==
LOC: Rad HDHVI 13:30
PROVIDERS: ATTEND Internal Medicine Cardiovascular Disease
DX: R00.2 Palpitations (principal); I11.0 Hypertensive heart disease with heart failure; I50.33 Acute on chronic diastolic (congestive) heart failure; R06.02 Shortness of breath; I25.10 Atherosclerotic heart disease of native coronary artery without angina pectoris; R60.9 Edema, unspecified; Z82.49 Family history of ischemic heart disease and other diseases of the circulatory system
CPT/HCPCS: 78452; 93005; 96374; 96375; A9500; J0153

== ENCOUNTER → 2022-04-25 | Outpatient (CLI) | payer OTHER ==
[~2022-04-25] MED LIST changes: -ADENOSINE 67 MG in GIVE UN-DILUTED 0 ML IV ONE; -ADENOSINE 90 MG/30 ML INJ IV ONE
[2022-04-25 12:02] LABS: Urine Blood Negative /uL (Negative); Urine Specific Gravity 1.014 (1.001-1.035)
[2022-04-25 12:03] LABS: Basophils # (auto) 0 10 ^3/uL (0-0.2); Basophils % (auto) 0.5 % (0.0-2.0); Eosinophils # (auto) 0.4 10 ^3/uL (0-0.8); Eosinophils % (auto) 4.2 % (0.0-7.0); Hematocrit 44.8 % (36.0-46.0); Hemoglobin 14.5 g/dL (12.2-16.2); Lymphocytes # (auto) 2.8 10 ^3/uL (0.4-5.4); Lymphocytes % (auto) 33.5 % (10.0-50.0); Mean Corpuscular Hemoglobin 29.3 pg (28.0-32.0); Mean Corpuscular Hgb Conc. 32.4 g/dL (32.0-36.0); Mean Corpuscular Volume 90.4 fL (80.0-100.0); Monocytes # (auto) 0.8 10 ^3/uL (0-1.3); Monocytes % (auto) 9.2 % (0.0-12.0); Neutrophils # (auto) 4.4 10 ^3/uL (1.6-8.6); Neutrophils % (auto) 52.6 % (37.0-80.0); Nucleated Red Blood Cells % 0.1 %; Red Blood Cells 4.96 10^6/uL (4.0-5.20); Red Cell Distribution Width 13.4 % (11.8-14.3); White Blood Cell 8.4 10^3/uL (4.4-10.8)
[2022-04-25 12:43] LABS: Potassium 4.1 mmol/L (3.5-5.1)
[2022-04-25 12:44] LABS: Albumin 3.8 g/dL (3.4-5.0); Calcium 9.8 mg/dL (8.5-10.1)
[2022-04-25 13:03] LABS: Free T4 (Free Thyroxine) 1.45 ng/dL (0.89-1.76)
[2022-04-25 13:05] LABS: BUN/Creatinine Ratio 22.6; Bilirubin, Total 0.8 mg/dL (0.2-1.0); Total Protein 7.2 g/dL (6.4-8.2)
== END | disposition home or self-care (01) ==
LOC: CHF HDHVI 09:00
PROVIDERS: ATTEND Internal Medicine Cardiovascular Disease
DX: I50.32 Chronic diastolic (congestive) heart failure (principal); E55.9 Vitamin D deficiency, unspecified
CPT/HCPCS: 36415; 80053; 80061; 81003; 82306; 82607; 83036; 84439; 84443; 85025

== ENCOUNTER → 2022-05-10 | Outpatient (CLI) | payer OTHER | END | disposition home or self-care (01) | LOC: LAB 07:57 | PROVIDERS: ATTEND Nurse Practitioner Family | DX: N39.0 Urinary tract infection, site not specified (principal) | CPT/HCPCS: 87086 ==

== ENCOUNTER → 2022-06-23 | Outpatient (CLI) | payer OTHER ==
[2022-06-23 12:28] LABS: Basophils # (auto) 0.1 10 ^3/uL (0-0.2); Basophils % (auto) 0.9 % (0.0-2.0); Eosinophils # (auto) 0.3 10 ^3/uL (0-0.8); Hematocrit 44.9 % (36.0-46.0); Lymphocytes # (auto) 2.8 10 ^3/uL (0.4-5.4); Lymphocytes % (auto) 33.7 % (10.0-50.0); Mean Corpuscular Hemoglobin 29.5 pg (28.0-32.0); Mean Corpuscular Hgb Conc. 33.4 g/dL (32.0-36.0); Mean Corpuscular Volume 88.4 fL (80.0-100.0); Monocytes # (auto) 0.7 10 ^3/uL (0-1.3); Neutrophils # (auto) 4.5 10 ^3/uL (1.6-8.6); Neutrophils % (auto) 53.4 % (37.0-80.0); Nucleated Red Blood Cells % 0.3 %; Red Blood Cells 5.08 10^6/uL (4.0-5.20); Red Cell Distribution Width 13.5 % (11.8-14.3); White Blood Cell 8.4 10^3/uL (4.4-10.8)
[2022-06-23 13:24] LABS: Albumin 3.7 g/dL (3.4-5.0); Calcium 9.9 mg/dL (8.5-10.1); Potassium 4.5 mmol/L (3.5-5.1)
[2022-06-23 13:29] LABS: Bilirubin, Total 0.3 mg/dL (0.2-1.0); Total Protein 7.7 g/dL (6.4-8.2)
== END | disposition home or self-care (01) ==
LOC: LAB 12:01
PROVIDERS: ATTEND Nurse Practitioner Family
DX: I50.32 Chronic diastolic (congestive) heart failure (principal); N18.30 Chronic kidney disease, stage 3 unspecified; E03.9 Hypothyroidism, unspecified
CPT/HCPCS: 36415; 80053; 80061; 84439; 84443; 85025

== ENCOUNTER → 2022-08-17 | Outpatient (CLI) | payer OTHER ==
[2022-08-17 11:45] LABS: Basophils # (auto) 0.1 10 ^3/uL (0-0.2); Basophils % (auto) 0.7 % (0.0-2.0); Eosinophils # (auto) 0.2 10 ^3/uL (0-0.8); Eosinophils % (auto) 2.9 % (0.0-7.0); Hematocrit 42.6 % (36.0-46.0); Hemoglobin 14.3 g/dL (12.2-16.2); Lymphocytes # (auto) 2.4 10 ^3/uL (0.4-5.4); Mean Corpuscular Hgb Conc. 33.5 g/dL (32.0-36.0); Mean Corpuscular Volume 89.5 fL (80.0-100.0); Monocytes # (auto) 0.6 10 ^3/uL (0-1.3); Monocytes % (auto) 7.2 % (0.0-12.0); Neutrophils # (auto) 5.2 10 ^3/uL (1.6-8.6); Neutrophils % (auto) 61.2 % (37.0-80.0); Nucleated Red Blood Cells % 0.1 %; Red Blood Cells 4.76 10^6/uL (4.0-5.20); Red Cell Distribution Width 14.1 % (11.8-14.3); White Blood Cell 8.6 10^3/uL (4.4-10.8)
[2022-08-17 11:53] LABS: Urine Bacteria NONE SEEN /hpf (None Seen); Urine Blood Negative /uL (Negative); Urine Specific Gravity 1.022 (1.001-1.035); Urine WBC 3 /hpf (0 - 5)
[2022-08-17 12:23] LABS: Calcium 9.6 mg/dL (8.5-10.1); Magnesium 2.4 mg/dL (1.6-2.6); Potassium 4.8 mmol/L (3.5-5.1)
[2022-08-17 12:26] LABS: BUN/Creatinine Ratio 23.8 (10.0-20.0); Bilirubin, Total 0.3 mg/dL (0.2-1.0); Phosphorus 3.3 mg/dL (2.5-4.90); Total Protein 7.6 g/dL (6.4-8.2)
[2022-08-17 13:00] LABS: Protein, Urine 25.6 mg/dL (0.0-11.9)
== END | disposition home or self-care (01) ==
LOC: LAB 11:26
PROVIDERS: ATTEND Student in an Organized Health Care Education/Training Program
DX: N18.31 Chronic kidney disease, stage 3a (principal); E21.3 Hyperparathyroidism, unspecified; R80.9 Proteinuria, unspecified; R82.90 Unspecified abnormal findings in urine
CPT/HCPCS: 36415; 80053; 81001; 82570; 83735; 83970; 84100; 84156; 85025

== ENCOUNTER → 2022-11-02 | Outpatient (CLI) | payer OTHER ==
[~2022-11-02] MED LIST changes: -AMLO-489 PO; +AMLO1TAB22 PO; -LOSA-39 PO; +LOSA100T58 PO
[2022-11-02 14:43] LABS: Basophils # (auto) 0.1 10 ^3/uL (0-0.2); Eosinophils # (auto) 0.3 10 ^3/uL (0-0.8); Eosinophils % (auto) 3.2 % (0.0-7.0); Hematocrit 43.2 % (36.0-46.0); Hemoglobin 14.4 g/dL (12.2-16.2); Lymphocytes # (auto) 2.2 10 ^3/uL (0.4-5.4); Lymphocytes % (auto) 27.4 % (10.0-50.0); Mean Corpuscular Hemoglobin 29.9 pg (28.0-32.0); Mean Corpuscular Hgb Conc. 33.3 g/dL (32.0-36.0); Mean Corpuscular Volume 89.8 fL (80.0-100.0); Monocytes # (auto) 0.7 10 ^3/uL (0-1.3); Monocytes % (auto) 8.1 % (0.0-12.0); Neutrophils # (auto) 4.9 10 ^3/uL (1.6-8.6); Neutrophils % (auto) 60.3 % (37.0-80.0); Nucleated Red Blood Cells % 0.1 %; Red Blood Cells 4.82 10^6/uL (4.0-5.20); Red Cell Distribution Width 13.5 % (11.8-14.3); White Blood Cell 8.2 10^3/uL (4.4-10.8)
[2022-11-02 15:20] LABS: Calcium 9.7 mg/dL (8.5-10.1)
[2022-11-02 15:24] LABS: BUN/Creatinine Ratio 18.6 (10.0-20.0); Bilirubin, Total 0.4 mg/dL (0.2-1.0); Total Protein 7.8 g/dL (6.4-8.2)
== END | disposition home or self-care (01) ==
LOC: LAB 14:18
DX: N18.31 Chronic kidney disease, stage 3a (principal)
CPT/HCPCS: 36415; 80053; 85025

== ENCOUNTER → 2022-11-22 | Outpatient (CLI) | payer OTHER ==
[2022-11-22 11:34] LABS: Urine Bacteria FEW /hpf (None Seen); Urine Blood Negative /uL (Negative); Urine Clarity HAZY (Clear); Urine Color Yellow (Yellow); Urine Mucus FEW (None Seen); Urine Protein, UAD TRACE (Negative); Urine Specific Gravity 1.024 (1.001-1.035); Urine Urobilinogen Normal (Negative); Urine WBC 11 /hpf (0 - 5); Urine pH 5.5 (5.0-8.0)
[2022-11-22 11:40] LABS: Basophils # (auto) 0 10 ^3/uL (0-0.2); Basophils % (auto) 0.5 % (0.0-2.0); Eosinophils # (auto) 0.3 10 ^3/uL (0-0.8); Eosinophils % (auto) 3.2 % (0.0-7.0); Hematocrit 42.6 % (36.0-46.0); Hemoglobin 14.3 g/dL (12.2-16.2); Lymphocytes # (auto) 2.3 10 ^3/uL (0.4-5.4); Mean Corpuscular Hemoglobin 29.9 pg (28.0-32.0); Mean Corpuscular Hgb Conc. 33.6 g/dL (32.0-36.0); Mean Corpuscular Volume 89.1 fL (80.0-100.0); Monocytes # (auto) 0.7 10 ^3/uL (0-1.3); Monocytes % (auto) 8.2 % (0.0-12.0); Neutrophils # (auto) 5.1 10 ^3/uL (1.6-8.6); Neutrophils % (auto) 61.1 % (37.0-80.0); Red Blood Cells 4.78 10^6/uL (4.0-5.20); Red Cell Distribution Width 13.9 % (11.8-14.3); White Blood Cell 8.4 10^3/uL (4.4-10.8)
[2022-11-22 11:59] LABS: Alanine Aminotransferase 12 U/L (7-40); Alkaline Phosphatase 123 U/L (46-116); BUN/Creatinine Ratio 11.4 (10.0-20.0); Blood Urea Nitrogen 13 mg/dL (9-23); Calcium 10.1 mg/dL (8.5-10.1); Chloride 110 mmol/L (98-107); Glucose 118 mg/dL (74-106); Potassium 4.2 mmol/L (3.5-5.1); Sodium 139 mmol/L (136-145)
[2022-11-22 12:00] LABS: Albumin 4.2 g/dL (3.2-4.8); Aspartate Aminotransferase < 8 U/L (13-40); Bilirubin, Total 0.5 mg/dL (0.2-1.0); Protein, Urine 26.3 mg/dL (0.0-11.9)
[2022-11-22 12:02] LABS: Creatinine, Urine 186.54 mg/dL (30.0-125.0); Urine Protein/Creatinine Ratio 0.14
== END | disposition home or self-care (01) ==
LOC: LAB 10:36
PROVIDERS: ATTEND Student in an Organized Health Care Education/Training Program
DX: N18.31 Chronic kidney disease, stage 3a (principal); D63.1 Anemia in chronic kidney disease; E83.39 Other disorders of phosphorus metabolism; R80.9 Proteinuria, unspecified; R82.90 Unspecified abnormal findings in urine
CPT/HCPCS: 36415; 80053; 81001; 82570; 84100; 84156; 85025

== ENCOUNTER → 2023-02-21 | Outpatient (CLI) | payer OTHER ==
[2023-02-21 09:56] LABS: Basophils # (auto) 0.1 10 ^3/uL (0-0.2); Basophils % (auto) 1.2 % (0.0-2.0); Eosinophils # (auto) 0.3 10 ^3/uL (0-0.8); Eosinophils % (auto) 3.8 % (0.0-7.0); Hematocrit 44.1 % (36.0-46.0); Hemoglobin 14.7 g/dL (12.2-16.2); Lymphocytes # (auto) 2.6 10 ^3/uL (0.4-5.4); Lymphocytes % (auto) 30.9 % (10.0-50.0); Mean Corpuscular Hemoglobin 29.7 pg (28.0-32.0); Mean Corpuscular Hgb Conc. 33.3 g/dL (32.0-36.0); Mean Corpuscular Volume 89.4 fL (80.0-100.0); Monocytes # (auto) 0.7 10 ^3/uL (0-1.3); Monocytes % (auto) 7.9 % (0.0-12.0); Neutrophils # (auto) 4.7 10 ^3/uL (1.6-8.6); Neutrophils % (auto) 56.2 % (37.0-80.0); Nucleated Red Blood Cells % 0.1 %; Red Blood Cells 4.94 10^6/uL (4.0-5.20); Red Cell Distribution Width 14.2 % (11.8-14.3); Urine Bacteria MANY /hpf (None Seen); Urine Blood Negative /uL (Negative); Urine Clarity Clear (Clear); Urine Color Yellow (Yellow); Urine Hyaline Cast FEW /lpf (0 - 2); Urine Protein, UAD Negative (Negative); Urine Specific Gravity 1.019 (1.001-1.035); Urine Urobilinogen Normal (Negative); Urine WBC 10 /hpf (0 - 5); White Blood Cell 8.4 10^3/uL (4.4-10.8)
[2023-02-21 10:24] LABS: Alanine Aminotransferase 14 U/L (7-40); Albumin 4.4 g/dL (3.2-4.8); Alkaline Phosphatase 127 U/L (46-116); Anion Gap 7 (5-15); Aspartate Aminotransferase 16 U/L (13-40); BUN/Creatinine Ratio 15.4 (10.0-20.0); Blood Urea Nitrogen 21 mg/dL (9-23); Calcium 10.1 mg/dL (8.5-10.1); Carbon Dioxide 27 mmol/L (20-30); Chloride 107 mmol/L (98-107); Glucose 112 mg/dL (74-106); Potassium 4.5 mmol/L (3.5-5.1); Sodium 141 mmol/L (136-145)
[2023-02-21 10:25] LABS: Bilirubin, Total 0.4 mg/dL (0.2-1.0); Total Protein 7.2 g/dL (5.7-8.2)
[2023-02-21 10:34] LABS: Protein, Urine 20.2 mg/dL (0.0-11.9)
[2023-02-21 10:37] LABS: Creatinine, Urine 104.14 mg/dL (30.0-125.0); Urine Protein/Creatinine Ratio 0.19
== END | disposition home or self-care (01) ==
LOC: LAB 09:30
PROVIDERS: ATTEND Student in an Organized Health Care Education/Training Program
DX: N18.31 Chronic kidney disease, stage 3a (principal); E83.39 Other disorders of phosphorus metabolism; R82.90 Unspecified abnormal findings in urine
CPT/HCPCS: 36415; 80053; 81001; 82570; 83735; 84156; 85025

== ENCOUNTER → 2023-06-06 | Outpatient (CLI) | payer OTHER ==
[2023-06-06 12:52] LABS: Basophils # (auto) 0.1 10 ^3/uL (0-0.2); Basophils % (auto) 0.7 % (0.0-2.0); Eosinophils # (auto) 0.3 10 ^3/uL (0-0.8); Eosinophils % (auto) 3.7 % (0.0-7.0); Hemoglobin 14.8 g/dL (12.2-16.2); Lymphocytes # (auto) 2.6 10 ^3/uL (0.4-5.4); Lymphocytes % (auto) 33.2 % (10.0-50.0); Mean Corpuscular Hemoglobin 29.5 pg (28.0-32.0); Mean Corpuscular Volume 89.4 fL (80.0-100.0); Monocytes # (auto) 0.6 10 ^3/uL (0-1.3); Monocytes % (auto) 7.6 % (0.0-12.0); Neutrophils # (auto) 4.3 10 ^3/uL (1.6-8.6); Neutrophils % (auto) 54.8 % (37.0-80.0); Red Blood Cells 5.03 10^6/uL (4.0-5.20); Red Cell Distribution Width 14.2 % (11.8-14.3); White Blood Cell 7.9 10^3/uL (4.4-10.8)
[2023-06-06 12:59] LABS: Urine Bacteria MOD /hpf (None Seen); Urine Blood Negative /uL (Negative); Urine Clarity HAZY (Clear); Urine Color Yellow (Yellow); Urine Protein, UAD Negative (Negative); Urine Specific Gravity 1.019 (1.001-1.035); Urine Urobilinogen Normal (Negative); Urine WBC 15 /hpf (0 - 5)
[2023-06-06 13:05] LABS: Alanine Aminotransferase 14 U/L (7-40); Albumin 4.4 g/dL (3.2-4.8); Alkaline Phosphatase 124 U/L (46-116); Anion Gap 6 (5-15); Aspartate Aminotransferase 18 U/L (13-40); BUN/Creatinine Ratio 14.2 (10.0-20.0); Bilirubin, Total 0.4 mg/dL (0.2-1.0); Blood Urea Nitrogen 18 mg/dL (9-23); Calcium 10.1 mg/dL (8.5-10.1); Carbon Dioxide 26 mmol/L (20-30); Chloride 109 mmol/L (98-107); Glucose 115 mg/dL (74-106); Phosphorus 3.1 mg/dL (2.4-5.1); Potassium 4.4 mmol/L (3.5-5.1); Sodium 141 mmol/L (136-145); Total Protein 6.9 g/dL (5.7-8.2)
[2023-06-06 13:12] LABS: Protein, Urine 19.6 mg/dL (0.0-11.9)
[2023-06-06 13:15] LABS: Creatinine, Urine 133.58 mg/dL (30.0-125.0); Urine Protein/Creatinine Ratio 0.15
== END | disposition home or self-care (01) ==
LOC: LAB 12:28
PROVIDERS: ATTEND Student in an Organized Health Care Education/Training Program
DX: E11.22 Type 2 diabetes mellitus with diabetic chronic kidney disease (principal); N18.30 Chronic kidney disease, stage 3 unspecified; D63.1 Anemia in chronic kidney disease; E55.9 Vitamin D deficiency, unspecified; R80.9 Proteinuria, unspecified; E21.3 Hyperparathyroidism, unspecified; E11.21 Type 2 diabetes mellitus with diabetic nephropathy
CPT/HCPCS: 36415; 80053; 81001; 82306; 82570; 83036; 83970; 84100; 84156; 85025

== ENCOUNTER → 2023-10-06 | Outpatient (CLI) | payer OTHER ==
[~2023-10-06] MED LIST changes: +LOSA-535 PO; -LOSA100T58 PO
[2023-10-06 13:54] LABS: Basophils # (auto) 0.1 10 ^3/uL (0-0.2); Basophils % (auto) 0.7 % (0.0-2.0); Eosinophils # (auto) 0.3 10 ^3/uL (0-0.8); Eosinophils % (auto) 3.9 % (0.0-7.0); Hemoglobin 14.4 g/dL (12.2-16.2); Lymphocytes # (auto) 2.5 10 ^3/uL (0.4-5.4); Lymphocytes % (auto) 31.1 % (10.0-50.0); Mean Corpuscular Hemoglobin 30.4 pg (28.0-32.0); Mean Corpuscular Hgb Conc. 33.4 g/dL (32.0-36.0); Monocytes # (auto) 0.7 10 ^3/uL (0-1.3); Neutrophils # (auto) 4.4 10 ^3/uL (1.6-8.6); Neutrophils % (auto) 55.3 % (37.0-80.0); Red Blood Cells 4.73 10^6/uL (4.0-5.20); Red Cell Distribution Width 14.2 % (11.8-14.3)
[2023-10-06 14:04] LABS: Urine Bacteria MANY /hpf (None Seen); Urine Blood Negative /uL (Negative); Urine Color Light-Yellow (Yellow); Urine Protein, UAD Negative (Negative); Urine Specific Gravity 1.021 (1.001-1.035); Urine Urobilinogen Normal (Negative); Urine WBC 5 /hpf (0 - 5)
[2023-10-06 14:05] LABS: Urine Clarity Hazy (Clear)
[2023-10-06 14:06] LABS: Alanine Aminotransferase 13 U/L (7-40); Alkaline Phosphatase 136 U/L (46-116); Anion Gap 5 (5-15); BUN/Creatinine Ratio 18.5 (10.0-20.0); Blood Urea Nitrogen 25 mg/dL (9-23); Carbon Dioxide 24 mmol/L (20-30); Chloride 112 mmol/L (98-107); Glucose 106 mg/dL (74-106); Magnesium 1.9 mg/dL (1.6-2.6); Potassium 4.4 mmol/L (3.5-5.1); Sodium 141 mmol/L (136-145)
[2023-10-06 14:07] LABS: Albumin 4.2 g/dL (3.2-4.8); Aspartate Aminotransferase 10 U/L (13-40); Bilirubin, Total 0.3 mg/dL (0.2-1.0); Phosphorus 3.9 mg/dL (2.4-5.1); Total Protein 6.7 g/dL (5.7-8.2)
[2023-10-06 14:22] LABS: Protein, Urine 26.1 mg/dL (0.0-11.9)
[2023-10-06 14:24] LABS: Creatinine, Urine 119.32 mg/dL (30.0-125.0); Urine Protein/Creatinine Ratio 0.22
== END | disposition home or self-care (01) ==
LOC: LAB 13:16
PROVIDERS: ATTEND Student in an Organized Health Care Education/Training Program
DX: E11.22 Type 2 diabetes mellitus with diabetic chronic kidney disease (principal); N18.31 Chronic kidney disease, stage 3a; D63.1 Anemia in chronic kidney disease; E78.5 Hyperlipidemia, unspecified; E21.3 Hyperparathyroidism, unspecified; R80.9 Proteinuria, unspecified; R82.90 Unspecified abnormal findings in urine; E61.2 Magnesium deficiency
CPT/HCPCS: 36415; 80053; 81001; 82043; 82570; 83036; 83735; 83970; 84100; 84156; 85025

== ENCOUNTER 2024-01-01 20:20 | Emergency (ER) | payer OTHER, MEDICAID ==
[~2024-01-01] VITALS: Ht 162.6 cm; Wt 81.8 kg
[2024-01-01] MEDS ORDERED: hydrALAZINE HCL 20 MG/ML VL IV ONE (21:15)
[2024-01-01 22:02] LABS: Chloride 107 mmol/L (98-107); Potassium 4.4 mmol/L (3.5-5.1); Sodium 137 mmol/L (136-145)
[2024-01-01 22:03] LABS: Anion Gap 7 (5-15); Basophils # (auto) 0.1 10 ^3/uL (0-0.2); Basophils % (auto) 0.8 % (0.0-2.0); Calcium 10.6 mg/dL (8.7-10.4); Carbon Dioxide 23 mmol/L (20-31); Eosinophils # (auto) 0.2 10 ^3/uL (0-0.8); Hematocrit 48.3 % (36.0-46.0); Hemoglobin 15.7 g/dL (12.2-16.2); Lymphocytes # (auto) 2.1 10 ^3/uL (0.4-5.4); Lymphocytes % (auto) 17.6 % (10.0-50.0); Mean Corpuscular Hemoglobin 29.4 pg (28.0-32.0); Mean Corpuscular Hgb Conc. 32.5 g/dL (32.0-36.0); Mean Corpuscular Volume 90.6 fL (80.0-100.0); Monocytes % (auto) 8.3 % (0.0-12.0); Neutrophils # (auto) 8.5 10 ^3/uL (1.6-8.6); Neutrophils % (auto) 71.3 % (37.0-80.0); Nucleated Red Blood Cells % 0.1 %; Platelet Count (auto) 324 10^3/uL (140-450); Red Blood Cells 5.33 10^6/uL (4.0-5.20); Red Cell Distribution Width 13.8 % (11.8-14.3); White Blood Cell 11.9 10^3/uL (4.4-10.8)
[2024-01-01 22:08] LABS: BUN/Creatinine Ratio 13.6 (10.0-20.0); Blood Urea Nitrogen 15 mg/dL (9-23); Glucose 129 mg/dL (74-106)
[2024-01-01] MEDS ORDERED: AMOX1SUS99 PO (22:35)
[2024-01-01] MEDS ORDERED: AMOXICILLIN/CLAV 400MG/5ML SUSP 50ML PO ONE (22:45)
[2024-01-01] MEDS ORDERED: AMOXICILLIN/CLAVULAN 500 MG TAB PO ONE (23:15)
[2024-01-01] MEDS: cefTRIAXone SOD 1,000 MG VL IM ONE (23:30)
[2024-01-01] MEDS: HYDROcodone-ACET 5/325MG TAB PO ONE (23:30)
[2024-01-01 23:33] VITALS: BP 162/98; PULSE 88; RESP 18; TEMP 98.3; O2SAT 98
== END 2024-01-02 00:07 | disposition home or self-care (01) ==
LOC: ER 20:20
DX: I12.9 Hypertensive chronic kidney disease with stage 1 through stage 4 chronic kidney disease, or unspecified chronic kidney disease (principal); E11.22 Type 2 diabetes mellitus with diabetic chronic kidney disease; N18.9 Chronic kidney disease, unspecified; E03.9 Hypothyroidism, unspecified; Z79.899 Other long term (current) drug therapy; Z88.1 Allergy status to other antibiotic agents; Z79.82 Long term (current) use of aspirin; Z86.73 Personal history of transient ischemic attack (TIA), and cerebral infarction without residual deficits; Z98.890 Other specified postprocedural states
CPT/HCPCS: 36415; 70450; 80048; 85025; 96372; 99285; J0696

== ENCOUNTER → 2024-01-16 | Outpatient (CLI) | payer OTHER, MEDICAID ==
[~2024-01-16] MED LIST changes: +AMOX1SUS99 PO
[2024-01-16 14:28] LABS: Urine Bacteria None Seen /hpf (None Seen)
[2024-01-16 15:15] LABS: Basophils # (auto) 0.1 10 ^3/uL (0-0.2); Eosinophils # (auto) 0.3 10 ^3/uL (0-0.8); Eosinophils % (auto) 2.8 % (0.0-7.0); Hematocrit 44.1 % (36.0-46.0); Hemoglobin 14.9 g/dL (12.2-16.2); Lymphocytes # (auto) 2.6 10 ^3/uL (0.4-5.4); Lymphocytes % (auto) 26.6 % (10.0-50.0); Mean Corpuscular Hemoglobin 30.7 pg (28.0-32.0); Mean Corpuscular Hgb Conc. 33.7 g/dL (32.0-36.0); Mean Corpuscular Volume 91.1 fL (80.0-100.0); Monocytes # (auto) 0.6 10 ^3/uL (0-1.3); Monocytes % (auto) 6.5 % (0.0-12.0); Neutrophils # (auto) 6.1 10 ^3/uL (1.6-8.6); Neutrophils % (auto) 63.1 % (37.0-80.0); Nucleated Red Blood Cells % 0.1 %; Platelet Count (auto) 346 10^3/uL (140-450); Red Blood Cells 4.84 10^6/uL (4.0-5.20); White Blood Cell 9.7 10^3/uL (4.4-10.8)
[2024-01-16 15:31] LABS: Protein, Urine 24.1 mg/dL (1-14)
[2024-01-16 15:33] LABS: Alanine Aminotransferase 21 U/L (7-40); Alkaline Phosphatase 134 U/L (46-116); Anion Gap 6 (5-15); BUN/Creatinine Ratio 15.6 (10.0-20.0); Blood Urea Nitrogen 20 mg/dL (9-23); Calcium 10.5 mg/dL (8.7-10.4); Carbon Dioxide 25 mmol/L (20-31); Chloride 110 mmol/L (98-107); Glucose 99 mg/dL (74-106); Potassium 4.6 mmol/L (3.5-5.1); Sodium 141 mmol/L (136-145); Urine Blood Negative /uL (Negative); Urine Clarity Clear (Clear); Urine Color Light-Yellow (Yellow); Urine Mucus FEW (None Seen); Urine Protein, UAD Negative (Negative); Urine Specific Gravity 1.018 (1.001-1.035); Urine Urobilinogen Normal (Negative); Urine WBC 1 /hpf (0 - 5)
[2024-01-16 15:34] LABS: Albumin 4.2 g/dL (3.2-4.8); Aspartate Aminotransferase 13 U/L (13-40); Bilirubin, Total 0.4 mg/dL (0.2-1.0); Phosphorus 3.6 mg/dL (2.4-5.1)
[2024-01-16 15:35] LABS: Creatinine, Urine 136.97 mg/dL (30.0-125.0); Urine Protein/Creatinine Ratio 0.18
== END | disposition home or self-care (01) ==
LOC: LAB 14:16
PROVIDERS: ATTEND Student in an Organized Health Care Education/Training Program
DX: E11.21 Type 2 diabetes mellitus with diabetic nephropathy (principal); E21.3 Hyperparathyroidism, unspecified; N18.30 Chronic kidney disease, stage 3 unspecified; D63.1 Anemia in chronic kidney disease; R80.9 Proteinuria, unspecified; M10.9 Gout, unspecified; E55.9 Vitamin D deficiency, unspecified
CPT/HCPCS: 36415; 80053; 81001; 82306; 82570; 83735; 84100; 84156; 85025

== ENCOUNTER → 2024-06-12 | Outpatient (CLI) | payer OTHER ==
[2024-06-12 14:18] LABS: Basophils # (auto) 0.1 10 ^3/uL (0-0.2); Basophils % (auto) 0.8 % (0.0-2.0); Eosinophils # (auto) 0.2 10 ^3/uL (0-0.8); Eosinophils % (auto) 1.5 % (0.0-7.0); Hematocrit 40.2 % (36.0-46.0); Hemoglobin 13.5 g/dL (12.2-16.2); Lymphocytes # (auto) 2.7 10 ^3/uL (0.4-5.4); Mean Corpuscular Hemoglobin 30.4 pg (28.0-32.0); Mean Corpuscular Hgb Conc. 33.6 g/dL (32.0-36.0); Mean Corpuscular Volume 90.5 fL (80.0-100.0); Monocytes # (auto) 1.1 10 ^3/uL (0-1.3); Monocytes % (auto) 9.7 % (0.0-12.0); Neutrophils # (auto) 7.5 10 ^3/uL (1.6-8.6); Nucleated Red Blood Cells % 0.1 %; Platelet Count (auto) 281 10^3/uL (140-450); Red Blood Cells 4.45 10^6/uL (4.0-5.20); White Blood Cell 11.6 10^3/uL (4.4-10.8)
[2024-06-12 14:24] LABS: Urine Bacteria FEW /hpf (None Seen); Urine Blood Negative /uL (Negative); Urine Clarity Turbid (Clear); Urine Color Yellow (Yellow); Urine Mucus FEW (None Seen); Urine Protein, UAD TRACE (Negative); Urine Specific Gravity 1.028 (1.001-1.035); Urine Squamous Epithelial Cell FEW /hpf (<5); Urine Urobilinogen Normal (Negative); Urine WBC 36 /HPF (0-5); Urine pH 5.5 (5.0-9.0)
[2024-06-12 15:11] LABS: Potassium 4.4 mmol/L (3.5-5.1)
[2024-06-12 15:18] LABS: BUN/Creatinine Ratio 15.2 (10.0-20.0)
[2024-06-12 15:19] LABS: Albumin 4.6 g/dL (3.2-4.8)
[2024-06-12 15:20] LABS: Phosphorus 3.4 mg/dL (2.4-5.1)
[2024-06-12 15:21] LABS: Calcium 10.5 mg/dL (8.7-10.4)
[2024-06-12 15:30] LABS: Uric Acid 4.5 mg/dL (3.1-7.8)
== END | disposition home or self-care (01) ==
LOC: LAB 14:03
PROVIDERS: ATTEND Student in an Organized Health Care Education/Training Program
DX: E11.22 Type 2 diabetes mellitus with diabetic chronic kidney disease (principal); N18.30 Chronic kidney disease, stage 3 unspecified; E11.21 Type 2 diabetes mellitus with diabetic nephropathy; E55.9 Vitamin D deficiency, unspecified; E21.3 Hyperparathyroidism, unspecified; N39.0 Urinary tract infection, site not specified; M10.9 Gout, unspecified; R80.9 Proteinuria, unspecified; D63.1 Anemia in chronic kidney disease
CPT/HCPCS: 36415; 80069; 81001; 83970; 84550; 85025

== ENCOUNTER → 2024-07-02 | Outpatient (CLI) | payer OTHER ==
[2024-07-02 10:49] LABS: Basophils # (auto) 0 10 ^3/uL (0-0.2); Basophils % (auto) 0.4 % (0.0-2.0); Eosinophils # (auto) 0.2 10 ^3/uL (0-0.8); Eosinophils % (auto) 2.6 % (0.0-7.0); Hematocrit 42.1 % (36.0-46.0); Lymphocytes # (auto) 2.9 10 ^3/uL (0.4-5.4); Lymphocytes % (auto) 33.4 % (10.0-50.0); Mean Corpuscular Hemoglobin 30.2 pg (28.0-32.0); Mean Corpuscular Hgb Conc. 33.4 g/dL (32.0-36.0); Mean Corpuscular Volume 90.7 fL (80.0-100.0); Monocytes # (auto) 0.7 10 ^3/uL (0-1.3); Monocytes % (auto) 8.5 % (0.0-12.0); Neutrophils # (auto) 4.7 10 ^3/uL (1.6-8.6); Neutrophils % (auto) 55.1 % (37.0-80.0); Platelet Count (auto) 334 10^3/uL (140-450); Red Blood Cells 4.64 10^6/uL (4.0-5.20); Red Cell Distribution Width 14.5 % (11.8-14.3); White Blood Cell 8.6 10^3/uL (4.4-10.8)
[2024-07-02 11:09] LABS: Alanine Aminotransferase 17 U/L (7-40); Anion Gap 5 (5-15); BUN/Creatinine Ratio 15.2 (10.0-20.0); Blood Urea Nitrogen 19 mg/dL (9-23); Carbon Dioxide 28 mmol/L (20-31); Sodium 141 mmol/L (136-145); Total Protein 7.4 g/dL (5.7-8.2); Triglycerides 121 mg/dL (< 150)
[2024-07-02 11:10] LABS: Albumin 4.6 g/dL (3.2-4.8); Aspartate Aminotransferase 15 U/L (13-40)
[2024-07-02 11:11] LABS: Bilirubin, Total 0.5 mg/dL (0.2-1.0); Cholesterol 177 mg/dL (< 200)
[2024-07-02 11:15] LABS: Alkaline Phosphatase 139 U/L (46-116); Calcium 10.9 mg/dL (8.7-10.4); Chloride 108 mmol/L (98-107); Glucose 120 mg/dL (74-106); HDL Cholesterol 33 mg/dL (40-59); LDL Cholesterol 127 mg/dL (< 100); Potassium 5.3 mmol/L (3.5-5.1)
== END | disposition home or self-care (01) ==
LOC: LAB 10:23
PROVIDERS: ATTEND Nurse Practitioner Family
DX: I13.0 Hypertensive heart and chronic kidney disease with heart failure and stage 1 through stage 4 chronic kidney disease, or unspecified chronic kidney disease (principal); I50.9 Heart failure, unspecified; N18.30 Chronic kidney disease, stage 3 unspecified; Z00.01 Encounter for general adult medical examination with abnormal findings
CPT/HCPCS: 36415; 80053; 80061; 84443; 85025

== ENCOUNTER → 2024-08-13 | Outpatient (CLI) | payer OTHER ==
[2024-08-13 11:06] LABS: Basophils # (auto) 0 10 ^3/uL (0-0.2); Basophils % (auto) 0.6 % (0.0-2.0); Eosinophils # (auto) 0.3 10 ^3/uL (0-0.8); Eosinophils % (auto) 4.4 % (0.0-7.0); Hematocrit 46.3 % (36.0-46.0); Hemoglobin 15.4 g/dL (12.2-16.2); Lymphocytes # (auto) 2.3 10 ^3/uL (0.4-5.4); Lymphocytes % (auto) 32.2 % (10.0-50.0); Mean Corpuscular Hemoglobin 29.8 pg (28.0-32.0); Mean Corpuscular Hgb Conc. 33.2 g/dL (32.0-36.0); Mean Corpuscular Volume 89.7 fL (80.0-100.0); Monocytes # (auto) 0.6 10 ^3/uL (0-1.3); Monocytes % (auto) 8.3 % (0.0-12.0); Neutrophils # (auto) 3.9 10 ^3/uL (1.6-8.6); Neutrophils % (auto) 54.5 % (37.0-80.0); Platelet Count (auto) 272 10^3/uL (140-450); Red Blood Cells 5.16 10^6/uL (4.0-5.20); Red Cell Distribution Width 14.5 % (11.8-14.3); White Blood Cell 7.1 10^3/uL (4.4-10.8)
[2024-08-13 11:19] LABS: Urine Bacteria FEW /hpf (None Seen); Urine Blood Negative /uL (Negative); Urine Clarity Turbid (Clear); Urine Color Light-Yellow (Yellow); Urine Protein, UAD Negative (Negative); Urine Specific Gravity 1.018 (1.001-1.035); Urine Squamous Epithelial Cell FEW /hpf (<5); Urine Urobilinogen Normal (Negative); Urine WBC 93 /HPF (0-5); Urine pH 5.5 (5.0-9.0)
[2024-08-13 11:31] LABS: Protein, Urine 23.7 mg/dL (1-14)
[2024-08-13 11:33] LABS: Creatinine, Urine 121.49 mg/dL (30.0-125.0); Urine Protein/Creatinine Ratio 0.2
[2024-08-13 11:35] LABS: Alanine Aminotransferase 14 U/L (7-40); Albumin 4.3 g/dL (3.2-4.8); Anion Gap 6 (5-15); Aspartate Aminotransferase 14 U/L (13-40); BUN/Creatinine Ratio 20.2 (10.0-20.0); Carbon Dioxide 24 mmol/L (20-31); Potassium 4.3 mmol/L (3.5-5.1); Sodium 141 mmol/L (136-145)
[2024-08-13 11:36] LABS: Alkaline Phosphatase 130 U/L (46-116); Bilirubin, Total 0.4 mg/dL (0.2-1.0); Blood Urea Nitrogen 25 mg/dL (9-23); Calcium 10.6 mg/dL (8.7-10.4); Chloride 111 mmol/L (98-107); Glucose 123 mg/dL (74-106)
== END | disposition home or self-care (01) ==
LOC: LAB 10:49
PROVIDERS: ATTEND Student in an Organized Health Care Education/Training Program
DX: E11.22 Type 2 diabetes mellitus with diabetic chronic kidney disease (principal); N18.30 Chronic kidney disease, stage 3 unspecified; E11.21 Type 2 diabetes mellitus with diabetic nephropathy; E21.3 Hyperparathyroidism, unspecified; E55.9 Vitamin D deficiency, unspecified; M10.9 Gout, unspecified; N39.0 Urinary tract infection, site not specified; R80.9 Proteinuria, unspecified; D63.1 Anemia in chronic kidney disease
CPT/HCPCS: 36415; 80053; 81001; 82306; 82570; 84156; 84300; 85025

== ENCOUNTER → 2024-08-30 | Outpatient (CLI) | payer OTHER | END | disposition home or self-care (01) | LOC: Rad HDHVI 08:48 | PROVIDERS: ATTEND Internal Medicine Cardiovascular Disease | DX: I10 Essential (primary) hypertension (principal); I73.9 Peripheral vascular disease, unspecified | CPT/HCPCS: 93306 ==

== ENCOUNTER 2024-09-02 08:25 | Outpatient (CLI) | payer OTHER ==
[~2024-09-02] VITALS: Ht 162.6 cm; Wt 77.1 kg
[2024-09-02] MEDS ORDERED: ADENOSINE 65 MG in GIVE UN-DILUTED 0 ML IV ONE (08:45)
[2024-09-02] MEDS ORDERED: ADENOSINE 90 MG/30 ML INJ IV ONE (08:47)
== END 2024-09-02 17:00 | disposition home or self-care (01) ==
LOC: Rad HDHVI 08:25
PROVIDERS: ATTEND Internal Medicine Cardiovascular Disease
DX: I25.10 Atherosclerotic heart disease of native coronary artery without angina pectoris (principal); R07.89 Other chest pain; I13.0 Hypertensive heart and chronic kidney disease with heart failure and stage 1 through stage 4 chronic kidney disease, or unspecified chronic kidney disease; N18.32 Chronic kidney disease, stage 3b; I50.9 Heart failure, unspecified; E78.00 Pure hypercholesterolemia, unspecified; R60.0 Localized edema; I73.9 Peripheral vascular disease, unspecified; J44.9 Chronic obstructive pulmonary disease, unspecified; I42.0 Dilated cardiomyopathy; Z82.49 Family history of ischemic heart disease and other diseases of the circulatory system; Z79.82 Long term (current) use of aspirin; Z88.2 Allergy status to sulfonamides
CPT/HCPCS: 78452; 93017; A9500; J0153

== ENCOUNTER → 2024-09-25 | Outpatient (CLI) | payer OTHER ==
[2024-09-25 10:24] LABS: Hematocrit 45.8 % (36.0-46.0); Hemoglobin 15.5 g/dL (12.2-16.2); Mean Corpuscular Hemoglobin 29.9 pg (28.0-32.0); Mean Corpuscular Volume 88.5 fL (80.0-100.0); Nucleated Red Blood Cells % 0.0 %
[2024-09-25 10:32] LABS: Urine Protein, UAD Negative (Negative)
[2024-09-25 10:35] LABS: Alanine Aminotransferase 14 U/L (7-40); Anion Gap 7 (5-15); BUN/Creatinine Ratio 17.7 (10.0-20.0); Carbon Dioxide 25 mmol/L (20-31); Glucose 104 mg/dL (74-106); Potassium 4.6 mmol/L (3.5-5.1); Sodium 142 mmol/L (136-145); Total Protein 6.7 g/dL (5.7-8.2)
[2024-09-25 10:36] LABS: Albumin 4.2 g/dL (3.2-4.8); Bilirubin, Total 0.4 mg/dL (0.2-1.0)
[2024-09-25 10:38] LABS: Alkaline Phosphatase 127 U/L (46-116); Blood Urea Nitrogen 23 mg/dL (9-23); Calcium 10.5 mg/dL (8.7-10.4); Chloride 110 mmol/L (98-107)
[2024-09-25 10:45] LABS: Protein, Urine 17.4 mg/dL (1-14)
== END | disposition home or self-care (01) ==
LOC: LAB 09:52
PROVIDERS: ATTEND Student in an Organized Health Care Education/Training Program
DX: E11.21 Type 2 diabetes mellitus with diabetic nephropathy (principal); E11.22 Type 2 diabetes mellitus with diabetic chronic kidney disease; N18.30 Chronic kidney disease, stage 3 unspecified; N39.0 Urinary tract infection, site not specified; D63.1 Anemia in chronic kidney disease; E21.3 Hyperparathyroidism, unspecified; E55.9 Vitamin D deficiency, unspecified; M10.9 Gout, unspecified; R80.9 Proteinuria, unspecified
CPT/HCPCS: 36415; 80053; 81001; 82570; 84156; 85025; 87086

== ENCOUNTER 2024-12-23 03:03 | Emergency (ER) | payer OTHER ==
[~2024-12-23] VITALS: Ht 162.6 cm; Wt 77.5 kg
[2024-12-23] MEDS: SODIUM CHLORIDE 0.9% 500 ML IV ONE (03:30)
[2024-12-23 04:18] LABS: Hematocrit 45.1 % (36.0-46.0); Hemoglobin 15.0 g/dL (12.2-16.2); Mean Corpuscular Hemoglobin 30.2 pg (28.0-32.0); Mean Corpuscular Volume 90.6 fL (80.0-100.0); Nucleated Red Blood Cells % 0.1 %
[2024-12-23 04:24] LABS: INR 1.03 (0.9-1.15); Partial Thromboplastin Time 29.1 SEC (24.5-34.5); Prothrombin Time 10.9 sec (9.3-11.8)
[2024-12-23 04:25] LABS: Alanine Aminotransferase 12 U/L (7-40); Albumin 4.6 g/dL (3.2-4.8); Alkaline Phosphatase 143 U/L (46-116); Anion Gap 9 (5-15); BUN/Creatinine Ratio 16.4 (10.0-20.0); Blood Urea Nitrogen 22 mg/dL (9-23); Calcium 10.3 mg/dL (8.7-10.4); Carbon Dioxide 23 mmol/L (20-31); Chloride 113 mmol/L (98-107); Glucose 114 mg/dL (74-106); Potassium 4.1 mmol/L (3.5-5.1); Sodium 145 mmol/L (136-145); Total Protein 7.8 g/dL (5.7-8.2)
[2024-12-23 04:26] LABS: Bilirubin, Total 0.3 mg/dL (0.2-1.0)
--- NOTE | 2024-12-23 04:41 | ED.PDOC ---
Eye-HPI HPI Comments 89 y/o F, with a Hx of HTN, presents with c/c of throat pain after taking her HTN medications, last night. No reported shortness of breath, throat swelling, or further associated symptoms. Upon arrival to ED triage, patient was found hypertensive at 207/134 and 197/71. Chief Complaint: Sore Throat Time Seen by MD: 03:30 Primary Care Provider: FELICIA George Allergies: Coded Allergies: Sulfa Drugs (Verified Allergy, Mild, RASH, 06/25/21) Home Meds Active Scripts Amoxicillin & Pot Clavulanate (Augmentin Es-600 600-42.9 mg/5Ml) 1 Briana Briana, 1 BRIANA PO BID for 7 Days, #70 ML Prov:SANJUANITA QUINTERO MD 01/01/24 Reported Medications Clopidogrel Bisulfate (CLOPIDOGREL) 75 Mg Tab, 1 TAB PO QPM for CAD, MG 06/25/21 Cyclobenzaprine Hcl (Cyclobenzaprine Hcl) 10 Mg Tab, 1 TAB PO Q8HP PRN for ARTHRITIS PAIN 02/02/21 Hydrocodone-Acetaminophen (Hydrocodone/Acetaminophen 10-325 mg) 1 Tab Tab, 1 TAB PO TIDPRN PRN for ARTHRITIS PAIN 02/02/21 Furosemide (Furosemide) 40 Mg Tab, 1 TAB PO DAILY PRN for FLUID RETENTION 02/02/21 Aspirin (Aspir-81) 81 Mg Tab, 1 TAB PO QPM for HEART DISEASE 02/02/21 Levothyroxine Sodium (Levothyroxine Sodium) 112 Mcg Tab, 1 TAB PO QPM for HYPOTHYROIDISM 02/02/21 Losartan Potassium (Losartan Potassium) 100 Mg Tab, 1 TAB PO QPM for HYPERTENSION 02/02/21 Atenolol (Atenolol) 50 Mg Tab, 1 TAB PO QPM for HYPERTENSION 02/02/21 Amlodipine Besylate (Amlodipine Besylate) 5 Mg Tab, 1 TAB PO QPM for HYPERTENSION 02/02/21 Information Source: Patient Mode of Arrival: Ambulatory Timing: Hours Duration: Since onset Prehospital treatment: None Past Medical History PAST MEDICAL HISTORY: CKF, CVA, DM, HTN, [place], Thyroid Surgical History: Appendectomy, Cholecystectomy, Hysterectomy, [employer] History: No Pertinent [employer] History Family History Family History: Reviewed,noncontributory to illness, Family hx of DM, Family hx of HTN Social History Smoker: Non-Smoker Alcohol: Denies ETOH Use Drugs: Denies Drug Use Lives In: Home All Other Systems: Reviewed and Negative (Comprehensive review of systems are negative unless stated in HPI) Physical Exam General Appearance: Moderate Distress, Normal, Other (elderly appearing ) HEENT: Normal ENT Inspection, Pharynx Normal, TMs Normal Neck: Full Range of Motion, Non-Tender, Normal, Normal Inspection Respiratory: Chest Non-Tender, Lungs Clear, No Accessory Muscle Use, No Respiratory Distress, Normal Breath Sounds Cardiovascular: No Edema, No JVD, No Murmur, No Gallop, Normal Peripheral Pulses, Regular Rate/Rhythm Breast Exam: Deferred Gastrointestinal: No Organomegaly, Non Tender, No Pulsatile Mass, Normal Bowel Sounds, Soft Genitalia: Deferred Pelvic: Deferred Rectal: Deferred Extremities: No calf tenderness, Normal capillary refill, Normal inspection, Normal range of motion, Non-tender, No pedal edema Musculoskeletal : Apperance: Normal Neurologic: Alert, location man II-XII nml as Tested, No Motor Deficits, Normal Affect, Normal Mood, No Sensory Deficits Cerebellar Function: NOT DONE Reflexes: NOT DONE Skin: Dry, Normal Color, Warm Peripheral Pulses: 3+ Radial (R), 3+ Radial (L) Lymphatic: No Adenopathy Was a procedure done? Was a procedure done?: No EENT DIFF Eye: N/A Ear: N/A Mouth: N/A Sore Throat: Peritonsillar Abscess, Peritonsillar Cellulitis, Pharyngitis, Streptococcal, Viral Pharyngitis, URI, Other (foreign body, among others ) X-Ray, Labs, Meds, VS Vital Signs Date Time Temp Pulse Resp B/P (MAP) Pulse Ox O2 Delivery O2 Flow Rate FiO2 12/23/24 08:13 63 18 98 Room Air 12/23/24 08:12 84 22 142/69 (93) 99 12/23/24 07:13 200/78 12/23/24 06:06 98.9 74 18 200/78 (118) 98 98.9 12/23/24 03:04 97.7 88 16 197/71 97 97.7 Lab Test 12/23/24 04:32 12/23/24 03:50 Range/Units Troponin I High Sensitivity < 3 L < 3 L </=34 ng/L White Blood Count 12.4 H 4.4-10.8 10^3/uL Red Blood Count 4.98 4.0-5.20 10^6/uL Hemoglobin 15.0 12.2-16.2 g/dL Hematocrit 45.1 36.0-46.0 % Mean Corpuscular Volume 90.6 80.0-100.0 fL Mean Corpuscular Hemoglobin 30.2 28.0-32.0 pg Mean Corpuscular Hemoglobin Concent 33.3 32.0-36.0 g/dL Red Cell Distribution Width 14.3 11.8-14.3 % Platelet Count 426 140-450 10^3/uL Mean Platelet Volume 8.3 6.9-10.8 fL Neutrophils (%) (Auto) 69.7 37.0-80.0 % Lymphocytes (%) (Auto) 19.2 10.0-50.0 % Monocytes (%) (Auto) 7.3 0.0-12.0 % Eosinophils (%) (Auto) 3.1 0.0-7.0 % Basophils (%) (Auto) 0.7 0.0-2.0 % Neutrophils # (Auto) 8.7 H 1.6-8.6 10 ^3/uL Lymphocytes # (Auto) 2.4 0.4-5.4 10 ^3/uL Monocytes # (Auto) 0.9 0-1.3 10 ^3/uL Eosinophils # (Auto) 0.4 0-0.8 10 ^3/uL Basophils # (Auto) 0.1 0-0.2 10 ^3/uL Nucleated Red Blood Cells 0.1 % Prothrombin Time 10.9 9.3-11.8 sec Prothrombin Time INR 1.03 0.9-1.15 Activated Partial Thromboplast Time 29.1 24.5-34.5 SEC Sodium Level 145 136-145 mmol/L Potassium Level 4.1 3.5-5.1 mmol/L Chloride Level 113 H 98-107 mmol/L Carbon Dioxide Level 23 20-31 mmol/L Anion Gap 9 5-15 Blood Urea Nitrogen 22 9-23 mg/dL Creatinine 1.34 H 0.550-1.02 mg/dL Glomerular Filtration Rate Calc 38 >90 mL/min BUN/Creatinine Ratio 16.4 10.0-20.0 Serum Glucose 114 H 74-106 mg/dL Calcium Level 10.3 8.7-10.4 mg/dL Total Bilirubin 0.3 0.2-1.0 mg/dL Aspartate Amino Transferase (AST) 15 13-40 U/L Alanine Aminotransferase (ALT) 12 7-40 U/L Alkaline Phosphatase 143 H 46-116 U/L Total Protein 7.8 5.7-8.2 g/dL Albumin 4.6 3.2-4.8 g/dL Current Medications Medications (Trade) Dose Ordered Sig/Vlad Route Start Time Stop Time Status Last Admin Hydralazine HCl (Apresoline Injection) 10 mg ONCE ONCE IV 12/23/24 03:30 12/23/24 03:31 DC 12/23/24 07:13 Patient alert. Came in for generalized symptoms. Blood pressure elevated. Was given hydralazine. Continues to have high blood pressure. Was given labetalol. Denies chest pain. Denies shortness a breath. No leg swelling. No discoloration. Possible urinary tract infection. Was given prescription of Keflex antibiotic. Explained to the patient. Continue monitoring. Was told to follow up with her primary care physician. Was told to come back if there is any problem. Time of 1ST Reevaluation: 04:00 Reevaluation 1ST: Unchanged Patient Education/Counseling: Diagnosis, Need For Follow Up Family Education/Counseling: No Family Present SEPSIS Sepsis Screen Date sepsis recognized/suspect: Dec 23, 2024 Time Sepsis recognized/suspect: 305 Recent Procedure: No On Antibiotic Therapy: No Respiratory Rate >20: No Heart Rate >90: No Temp<36 C (96.8 F) or >38.3 C: No SBP <90 or MAP <65 mmHG: No New Acute Mental Status Change: No Is the patient on CPAP, BIPAP,: No Physician Orders Electrocardigram (12/23/24 03:25) Chest Xray 1 View (12/23/24 03:25) Neck Without Contrast (12/23/24 03:25) Hydrocodone-Acet 5/325mg Tab ([place] 5/32 (12/23/24 08:15) Vital Signs Date Time Temp Pulse Resp B/P (MAP) Pulse Ox O2 Delivery O2 Flow Rate FiO2 12/23/24 08:13 63 18 98 Room Air 12/23/24 08:12 84 22 142/69 (93) 99 12/23/24 07:13 200/78 12/23/24 06:06 98.9 74 18 200/78 (118) 98 98.9 12/23/24 03:04 97.7 88 16 197/71 97 97.7 Laboratory Tests Test 12/23/24 03:50 White Blood Count 12.4 10^3/uL (4.4-10.8) H Medications Medications Dose Ordered Sig/Vlad Route Start Time Stop Time Status Last Admin Dose Admin Hydralazine HCl 10 mg ONCE ONCE IV 12/23/24 03:30 12/23/24 03:31 DC 12/23/24 07:13 Departure 1 Departure Time of Disposition: 07:52 Impression: Primary Impression: Hypertensive emergency Additional Impression: Pharyngitis Qualified Codes: J02.9 - Acute pharyngitis, unspecified Disposition: 01 HOME / SELF CARE / HOMELESS Condition: Good e-Prescriptions Cephalexin (KEFLEX CAPSULE) 250 Mg Cp 250 MG PO TID for 7 Days, #21 BOT Prov: SAMEER POTTER MD 12/23/24 Discharged With: Self Critical Care Note Critical Care Time?: Yes (90 min-critical care time only) Stability Stability form required: No Heart Score Heart Score: Heart Score Response (Comments) Value History N/A 0 EKG N/A 0 Age N/A 0 Risk Factors N/A 0 Troponin N/A 0 Total 0 I personally scribed for NAI MÉNDEZ MD ([email or web address]) on 12/23/24 at 04:41. Electronically submitted by Tony Masters [email or web address]). NAI MÉNDEZ MD Dec 23, 2024 04:41 SAMEER POTTER MD Dec 23, 2024 07:52
--- NOTE | 2024-12-23 05:59 | DVH ---
CHEST RADIOGRAPH Indication: SOB Technique: Single frontal view of the chest was obtained COMPARISON: CHEST TWO VIEWS ROUTINE on DOS: 10/18/21, CXR2 on DOS: 06/25/21, CHEST TWO VIEWS ROUTINE on DOS: 06/25/21, CHEST TWO VIEWS ROUTINE on DOS: 02/01/21 FINDINGS: Lines and Tubes: None Lungs: Clear Pleura: No effusion. No pneumothorax. Cardiomediastinal contours: Unremarkable Bones: Unremarkable IMPRESSION: 1. No acute disease.
[2024-12-23] MEDS: IOHEXOL 300 MG/ML 100ML BOTTLE IJ ONE (06:00)
[2024-12-23 06:06] VITALS: TEMP 98.9
--- NOTE | 2024-12-23 06:21 | DVH ---
EXAM: CT NECK WITHOUT CONTRAST INDICATION: sore throat unable to swallow Exam Date: 12/23/2024 05:24 AM COMPARISON: CT HEAD WITHOUT CONTRAST on DOS: 01/01/24 TECHNIQUE: CT of the neck without intravenous contrast. RADIATION DOSE: CTDIvol: 20.39 mGy, DLP: 20.39 mGy*cm FINDINGS: Asymmetric soft-tissue enlargement of the left larynx at approximately the C3/C4 level. This measures approximately 2.0 x 1.9 cm. Indeterminate prominent bilateral cervical chain lymph nodes are present measuring up to 0.8 cm. The fat planes of the neck appear intact. The airway and larynx are unremarkable. The parotid, submandibular and thyroid glands are unremarkable. The vascular structures of the neck appear patent. Multilevel degenerative changes of the spine. IMPRESSION: Asymmetric soft-tissue enlargement of the left larynx at approximately the C3/C4 level. This measures approximately 2.0 x 1.9 cm. This is concerning for malignancy. Recommend direct visualization. Indeterminate prominent bilateral cervical chain lymph nodes are present measuring up to 0.8 cm. Examination is limited secondary to lack of intravenous contrast administration.
[2024-12-23] MEDS: hydrALAZINE HCL 20 MG/ML VL IV ONE (07:13)
[2024-12-23 08:12] VITALS: BP 142/69
[2024-12-23 08:13] VITALS: PULSE 63; RESP 18; O2SAT 98
[2024-12-23] MEDS: LISINOPRIL 5 MG TAB PO ONE (08:14)
[2024-12-23] MEDS: LABETALOL HCL 20 MG/4 ML VL IV ONE (08:14)
[2024-12-23] MEDS ORDERED: CEPH250C PO (08:16)
[2024-12-23] MEDS: HYDROcodone-ACET 5/325MG TAB PO ONE (08:20)
== END 2024-12-23 08:27 | disposition home or self-care (01) ==
LOC: ER 03:03
DX: I16.1 Hypertensive emergency (principal); J02.9 Acute pharyngitis, unspecified; R06.02 Shortness of breath; I10 Essential (primary) hypertension; E11.9 Type 2 diabetes mellitus without complications; I25.2 Old myocardial infarction; Z79.82 Long term (current) use of aspirin; Z86.73 Personal history of transient ischemic attack (TIA), and cerebral infarction without residual deficits; Z88.2 Allergy status to sulfonamides; Z90.49 Acquired absence of other specified parts of digestive tract; Z90.710 Acquired absence of both cervix and uterus; M54.2 Cervicalgia
CPT/HCPCS: 36415; 70490; 71045; 80053; 84484; 85025; 85610; 85730; 96374; 99285; J0360

== ENCOUNTER 2025-01-22 10:31 | Outpatient (CLI) | payer OTHER ==
[~2025-01-22 10:31] MED LIST changes: +CEPH250C PO
[2025-01-22 10:59] LABS: Hematocrit 40.6 % (36.0-46.0); Hemoglobin 13.3 g/dL (12.2-16.2); Mean Corpuscular Hemoglobin 29.9 pg (28.0-32.0); Mean Corpuscular Volume 91.6 fL (80.0-100.0); Nucleated Red Blood Cells % 0.0 %
[2025-01-22 12:30] LABS: Albumin 4.1 g/dL (3.2-4.8); Alkaline Phosphatase 106 U/L (46-116); Anion Gap 8 (5-15); BUN/Creatinine Ratio 15.5 (10.0-20.0); Blood Urea Nitrogen 17 mg/dL (9-23); Calcium 9.7 mg/dL (8.7-10.4); Carbon Dioxide 26 mmol/L (20-31); Glucose 97 mg/dL (74-106); Potassium 4.4 mmol/L (3.5-5.1); Sodium 143 mmol/L (136-145); Total Protein 7.1 g/dL (5.7-8.2)
[2025-01-22 12:31] LABS: Bilirubin, Total 0.6 mg/dL (0.2-1.0); Urine Protein, UAD TRACE (Negative)
[2025-01-22 12:32] LABS: Alanine Aminotransferase 9 U/L (7-40); Chloride 109 mmol/L (98-107)
[2025-01-22 13:04] LABS: Protein, Urine 39.6 mg/dL (1-14)
== END 2025-01-22 17:00 | disposition home or self-care (01) ==
LOC: LAB 10:31
PROVIDERS: ATTEND Student in an Organized Health Care Education/Training Program
DX: I13.10 Hypertensive heart and chronic kidney disease without heart failure, with stage 1 through stage 4 chronic kidney disease, or unspecified chronic kidney disease (principal); E11.22 Type 2 diabetes mellitus with diabetic chronic kidney disease; N18.30 Chronic kidney disease, stage 3 unspecified; E11.21 Type 2 diabetes mellitus with diabetic nephropathy; E55.9 Vitamin D deficiency, unspecified; E21.3 Hyperparathyroidism, unspecified; D63.1 Anemia in chronic kidney disease; N39.0 Urinary tract infection, site not specified; M10.9 Gout, unspecified; R80.9 Proteinuria, unspecified
CPT/HCPCS: 36415; 80053; 81001; 82570; 84156; 85025